=== PATIENT | male | born 1955 | race Caucasian/White ===

== ENCOUNTER → 2023-12-12 11:40 | Outpatient (REF) | payer BC, SELFPAY | LOC: HWRAD 11:40 | PROVIDERS: ATTENDING PHYSICIAN Physician Assistant Medical | DX: J20.9 Acute bronchitis, unspecified (principal); R05.1 Acute cough | CPT/HCPCS: 71046 ==

== ENCOUNTER → 2024-02-26 11:35 | Outpatient (REF) | payer BC, SELFPAY ==
[2024-02-26 16:07] LABS: % Basophils 0.4 % (0-2); % Eosinophils 0.8 % (0-6); % Immature Granulocytes 0.5 % (0-0.5); % Monocytes 7.1 % (1.7-9.3); % Neutrophils 78.2 % (42.2-75.2); Absolute Eosinophils 0.1 10^3/uL (0-0.7); Absolute Monocytes 0.5 10^3/uL (0.1-0.6); Absolute Neutrophils 5.8 10^3/uL (1.4-6.5); Hematocrit 46.7 % (39.0-52.0); Hemoglobin 15.8 g/dL (13.0-18.0); Mean Corp Hgb Conc. 33.8 g/dL (33.0-37.0); Mean Corpuscular Hgb 29.4 pg (27.0-31.0); Mean Platelet Volume 11.2 fL (7.4-10.4); Nucleated Red Blood Cells % 0 % (-); Platelet Count 176 10^3/uL (130-400); Red Blood Cell Count 5.37 10^6/uL (4.70-6.10); Red Cell Dist. Width 15.7 % (11.5-14.5); White Blood Cell Count 7.5 10^3/uL (4.8-10.8)
[2024-02-26 16:34] LABS: ALT (SGPT) 40 U/L (0-50); AST (SGOT) 37 U/L (17-59); Alkaline Phosphatase 82 U/L (38-126); Blood Urea Nitrogen 25 mg/dl (9-20); Calcium 9.3 mg/dl (8.4-10.2); Carbon Dioxide 25 mmol/L (22-30); Chloride 103 mmol/L (98-107); Glucose 96 mg/dl (70-99); HDL Cholesterol 43 mg/dl; LDL Cholesterol, Calculated 89 mg/dl; Sodium 139 mmol/L (135-145); Total Cholesterol 147 mg/dl (50-199); Total Protein 5.9 g/dl (6.3-8.2); Triglyceride 76 mg/dl (10-149); Very Low Density Lipoprotein 15 mg/dl (0-30); eGFR > 60.00
[2024-02-26 16:35] LABS: Uric Acid 6.2 mg/dl (3.5-8.5)
[2024-02-27 09:38] LABS: Glycohemoglobin (HgbA1c) 5.8 % (4.0-5.6)
== END ==
LOC: HWLAB 11:35
PROVIDERS: ATTENDING PHYSICIAN Internal Medicine Rheumatology; FAMILY PHYSICIAN Physician Assistant Medical; REFERRING PHYSICIAN Nurse Practitioner Adult Health
DX: M1A.09X0 Idiopathic chronic gout, multiple sites, without tophus (tophi) (principal); E78.5 Hyperlipidemia, unspecified; E88.810 Metabolic syndrome; R73.03 Prediabetes; R73.01 Impaired fasting glucose
CPT/HCPCS: 36415; 80053; 80061; 82172; 83036; 84550; 85025

== ENCOUNTER 2024-05-26 13:53 | Inpatient (IN) | payer BC, MEDICARE, SELFPAY ==
[2024-05-25 17:40] VITALS: BP 189/123
[2024-05-25 17:52] VITALS: BMI 33.2
[2024-05-25 18:05] VITALS: BP 161/104
[2024-05-25 18:13] LABS: % Basophils 0.5 % (0-2); % Eosinophils 1.2 % (0-6); % Immature Granulocytes 0.3 % (0-0.5); % Lymphocytes 13.5 % (20.5-51.1); % Monocytes 7.2 % (1.7-9.3); % Neutrophils 77.3 % (42.2-75.2); Absolute Eosinophils 0.1 10^3/uL (0-0.7); Absolute Monocytes 0.5 10^3/uL (0.1-0.6); Absolute Neutrophils 5.8 10^3/uL (1.4-6.5); Hematocrit 49.7 % (39.0-52.0); Hemoglobin 16.7 g/dL (13.0-18.0); Mean Corp Hgb Conc. 33.6 g/dL (33.0-37.0); Mean Corpuscular Hgb 28.7 pg (27.0-31.0); Mean Corpuscular Volume 85.4 fL (80.0-94.0); Mean Platelet Volume 10.8 fL (7.4-10.4); Nucleated Red Blood Cells % 0 % (-); Platelet Count 159 10^3/uL (130-400); Red Blood Cell Count 5.82 10^6/uL (4.70-6.10); White Blood Cell Count 7.5 10^3/uL (4.8-10.8)
[2024-05-25 18:31] LABS: ALT (SGPT) 32 U/L (0-50); AST (SGOT) 35 U/L (17-59); Albumin 4.6 g/dl (3.5-5.0); Alkaline Phosphatase 99 U/L (38-126); Blood Urea Nitrogen 18 mg/dl (9-20); Calcium 9.5 mg/dl (8.4-10.2); Carbon Dioxide 28 mmol/L (22-30); Chloride 103 mmol/L (98-107); Estimated Creatinine Clearance 88 ml/min; Glucose 114 mg/dl (70-99); Potassium 3.8 mmol/L (3.5-5.1); Sodium 139 mmol/L (135-145); Total Bilirubin 1.6 mg/dl (0.2-1.3); Total Protein 6.6 g/dl (6.3-8.2); eGFR > 60.00
[2024-05-25 19:00] VITALS: BP 164/106
--- NOTE | 2024-05-25 19:34 | ED.CVA ---
History of Present Illness
General
Chief Complaint: CVA/TIA Symptoms
Source: patient
Exam Limitations: none
Time Seen by Provider: 05/25/24 19:07
Nursing documentation reviewed up to this point in time: agreed with
Onset of Stroke Symptoms
Onset of symptoms known: Yes
Date of onset of symptoms: 05/25/24
Time of onset of symptoms: 03:00
History of Present Illness
History of Present Illness:
Patient with history of IA 3 years ago and hypertension, presents to ED secondary to sudden onset of dizziness when walking to bathroom this morning at 3 AM, associated with difficulty swallowing. Symptoms have persisted since then, especially when
standing up. Patient reports minimal symptoms when laying down without movement. Patient had virtual visit with his primary care physician, who also noted right eyelid drooping along with slurred speech. Patient also reports mild diffuse
headache. Denies blurred vision. Denies loss of sensation or weakness. Patient's difficulty with swallowing have improved gradually over time. Denies nausea, vomiting, or diarrhea. No recent illness. Denies previous history of similar
symptoms. Patient currently takes Plavix only.
Past History
Past History
ED Past Medical History: HTN, Hypercholesterolemia and Other (Gout); Negative NIDDM
ED Past Surgical History: Cholecystectomy
Social History
Tobacco: Non-smoker
Alcohol: Occasional
Drug: None
Personal:
Living: with family
Employment: Employed
Review of Systems
Review of Systems
Allergies reviewed?: Yes
All Other Systems: ROS reviewed and negative except as documented in HPI and ROS
Constitutional: Reports no symptoms
Respiratory: Reports no symptoms
Cardiac: Reports no symptoms
ABD/GI: Reports no symptoms
Musculoskeletal: Reports no symptoms
Skin: Reports no symptoms
Neurological: Reports other (dizziness, slurred speech, difficulty swallowing)
Phy Exam
Physical Exam
Physical Exam:
Physical Exam
General: no apparent distress, not acutely ill. afebrile
Head: nc/at. eomi
Neck: supple. no meningeal signs.
Heart: irregularly irregular, no murmur. equal radial pulses.
Lungs: no acute respiratory distress. clear bilaterally
Abdomen: normal bowel sounds. not tender.
Neuro: alert and oriented x 3. no focal neurological deficits. normal speech. right eyelid drooping noted.
Skin: no rash
Psychiatric: well kept. interactive and cooperative
Extremities: no edema. no calf tenderness.
Course
Orders/Labs/Results
Orders:
Orders
05/25/24 18:06
CMP [Comprehensive Metabolic Panel] Urgent
Complete Blood Count/With Diff Urgent
Magnesium Urgent
Comment: ADD ON
TSH Reflex To Free T4 Urgent
Comment: ADD ON
05/25/24 18:22
EKG [Electrocardiogram (*1)] Urgent
Reason for Study: Vertigo / Dizzy
05/25/24 18:23
EKG- Treatment ONCE
05/25/24 19:33
Add On- LAB Urgent
Tests Added?: magnesium, TSH to reflex free T4
CT Head W/o Iv Contrast Urgent
Comment:
Reason For Exam: dizziness with slurred speech
05/25/24 22:07
Admit/Transfer Patient As Directed
Co-Sign Provider:
Level of Care: Observation services
Assign to:: Telemetry
Physician / Group: kehinde
Diagnosis: cva
Reason for Telemetry: Arrhythmia
Date to Stop Telemetry: 05/28/24
Time to Stop Telemetry: 11:00
PRN Pain Medication Management As Directed
May give lesser potent ordered pain med per pt: Yes
preference::
Protocol:: Medication orders for pain may be administered in a
manner that supports deferring to patient preference
when the pt is:
- Requesting an ordered lesser potent pain medication.
Least to most potent pain medications are defined
as: acetaminophen < NSAID < tramadol < opioids
(morphine, oxycodone, hydromorphone).
- Requesting a lesser dose of the same medication IF
ORDERED.
- Requesting a less intrusive route of administration
if both routes are prescribed by the provider (PO <
IV).
05/25/24 22:08
Code Status As Directed
Resuscitation Status: Full Code
05/25/24 23:30
Nitroglycerin Sublingual [Nitrostat (Sublingual)] 0.4 mg SL [id number] PRN
05/25/24 23:30
NEUROLOGY CONSULT Routine
Consulting Provider: Marian Vance
Was physician already notified: Yes
Glycohemoglobin (HgbA1c) Routine
MA [place] Routine
Comment:
Reason For Exam: stroke/TIA
Recent pill cam endoscopy?: No
MA Neck With Contrast Routine
Comment:
Reason For Exam: stroke/TIA
Recent pill cam endoscopy?: No
MR Brain Without Contrast Routine
Comment:
Reason For Exam: stroke/TIA
Recent pill cam endoscopy?: Yes
Activity As Directed
Activity Level: As Tolerated
NIH Stroke Scale As Directed
Directions: Per protocol
Comment: every shift and with any change in condition or mental status
Neurological Checks As Directed
Frequency: q4h
Additional Instructions:: q4h x 24h upon admission to the floor, then qshift & with any change in condition
and mental status
Orthostatic Vital Signs As Directed
Orthostatic VS Frequency: Now
Patient Education As Directed
Type: Stroke education packet
Comment: provide to patient and family
Pneumatic Compression Sleeves As Directed
Type: Knee high
Swallow Screening CVA/TIA ONLY As Directed
Comment: NPO until swallowing screening completed
If patient FAILS swallow screening:: NPO, Speech Therapy consult, Aspiration Precautions
If patient PASSES swallow screening, diet:: Regular
Vital Signs As Directed
Frequency: Per unit guidelines
Speech Therapy Eval & Treat Routine
DX Deep Vein Thrombosis Video Routine
05/26/24 06:00
Basic Metabolic Panel IN AM
Cardiovascular Evaluation IN AM
Complete Blood Count/No Diff IN AM
05/26/24 08:00
Aspirin Chewable [Low Strength Aspirin] 81 mg PO DAILY
Carvedilol [Coreg] 6.25 mg PO BID
Clopidogrel Bisulfate [Plavix] 75 mg PO DAILY
05/26/24 18:00
Allopurinol [Zyloprim] 300 mg PO QPM
Amlodipine [Norvasc] 10 mg PO QPM
Celecoxib [Celebrex] 200 mg PO QPM
Finasteride [Proscar] 5 mg PO QPM
Losartan [Cozaar] 100 mg PO QPM
05/28/24 11:00
DC Protocol for Telemetry ONCE
Abnormal Lab Results
05/25/24
18:06
RDW 15.0 H %
(11.5-14.5)
MPV 10.8 H fL
(7.4-10.4)
Absolute Lymphs (auto) 1.0 L 10^3/uL
(1.2-3.4)
Neutrophils % 77.3 H %
(42.2-75.2)
Lymphocytes % 13.5 L %
(20.5-51.1)
Glucose 114 H mg/dl
(70-99)
Total Bilirubin 1.6 H mg/dl
(0.2-1.3)
05/25/24 18:06
05/25/24 18:06
Vital Signs
Initial and Last Documented VS:
Initial Vital Signs
Temp Pulse Resp BP Pulse Ox
98.1 F 84 18 189/123 99
05/25/24 17:40 05/25/24 17:40 05/25/24 17:40 05/25/24 17:40 05/25/24 17:40
Last Documented Vital Signs
Temp Pulse Resp BP Pulse Ox
97.9 F 82 18 159/115 99
05/25/24 23:30 05/25/24 23:30 05/25/24 23:30 05/25/24 23:30 05/25/24 23:30
MDM/Problems Addressed
MDM/Problems Addressed:
CT head: No acute findings. However, patient found to be in new onset atrial fibrillation, which raises concern for potential TIA versus CVA.
Discussed with on-call neurology, Dr. Vance. Recommends admitting patient for further workup, including starting patient on aspirin along with continuation of Plavix.
*EKG
Interpreted by ED Provider?: Yes
EKG Intrepretation Date: 05/25/24
Heart Rate: 80
Rate: normal
Rhythm: a-fib
[place]: normal axis
Interval: normal interval
*Critical Care Note
Total Time (30-74mins, 75-104mins- exclusive of procedures): Not Applicable
ED Attending Note
-
Portions of this chart may have been created with voice recognition software.� Occasional wrong word or��sound alike� substitutions may have occurred due to the inherent limitations of voice recognition software.
Discharge Plan
Departure
Patient Disposition: Admit
Date of Disposition: 05/25/24
Time of Disposition: 21:28
Admit to: Telemetry
Presentation/result/management discussed w/ accepting MD/DO: Hospitalist
Discharge Problem:
Dizziness, Atrial fibrillation
Interventions
Interventions:
*Risk Screen - Suicide Last Done: 05/25/24 17:52
*General Assessment Last Done: 05/25/24 17:52
*Neglect/Abuse Screening Last Done: 05/25/24 17:52
ED- Fall Risk Assessment Last Done: 05/25/24 18:19
*ED COVID-19 Vaccine History Last Done: 05/25/24 17:52
*Nursing Disposition Last Done: 05/25/24 23:20
ED- Pulmonary Assessment Last Done: 05/25/24 18:16
ED- Neurological Assessment Last Done: 05/25/24 19:20
ED- Cardiac Assessment Last Done: 05/25/24 18:16
Discharge Date and Time
Discharge Date/Time: 05/25/24 23:20
[2024-05-25 20:18] LABS: Magnesium 2.2 mg/dl (1.6-2.3)
[2024-05-25 20:56] LABS: TSH Reflex To Free T4 0.51 uIU/ml (0.47-4.68)
[2024-05-25 21:00] VITALS: BP 148/100
--- NOTE | 2024-05-25 22:16 | HPS.HSE ---
Addendum entered and electronically signed by Quentin Paz MD 05/25/24 22:23:
CAD s/p stent in 2020.
Original Note:
Family Physician
-
Family Physician: Shelli Britton
Chief Complaint
-
difficulty speaking
History of Present Illness
68-year-old male history of right eye blindness since childhood trauma, CAD, hypertension, hypercholesterolemia, gout, presenting to the emergency room for sudden onset of throat closing up, difficulty speaking and swallowing and dizziness while
walking to the bathroom this morning at 3 AM as well as headache. Dizziness occurs particularly when standing up and has improved since then and described as lightheadedness. He had virtual visit with primary care physician who noted right eyelid
drooping and slurred speech. Patient denies any blurry vision. He denies loss of sensation or numbness or tingling or weakness. His speaking has improved. He denies nausea vomiting or diarrhea. He denies any chest pain or palpitations. He has
chronic shortness of breath but denies any cough which is at baseline. He denies any tinnitus, hearing loss or discharge from the ear.
He has a history of elevated blood pressure which has been volatile in the past but he has not been checking it recently. He is compliant with blood pressure medications.
He denies smoking alcohol or any drugs.
His father had stroke.
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
Medical History
Past Medical History
Past Medical History: Reports Other (right eye blindness since childhood trauma, CAD, hypertension, hypercholesterolemia, gout, )
Past Surgical History: Reports Other (Cholecystectomy)
Social History
Tobacco: Non-smoker
Alcohol: None
Drug: None
Family History
Family History: Not pertinent
Allergies / Home Medications
Allergies reflects when Allergies were last updated in [facility].
Home Medications with original date entered in [facility]
Allergy/Medication List:
Allergies
Allergy/AdvReac Type Severity Reaction Status Date / Time
codeine [Codeine] Allergy vomiting Verified 05/25/24 17:44
lisinopril Allergy throat Verified 05/25/24 17:44
problems
Home Medications
allopurinol 300 mg tablet 300 mg PO QPM Gout 05/31/21
amlodipine 10 mg tablet 10 mg PO QPM Blood pressure 05/31/21
telmisartan 80 mg tablet 80 mg PO QPM Blood pressure 05/31/21
nitroglycerin 0.4 mg sublingual tablet 0.4 mg sublingual [id number] PRN chest pain #25 tabs 06/01/21
aspirin 81 mg chewable tablet 81 mg PO QPM 05/25/24
carvedilol phosphate 20 mg capsule,[id number] multiphase 20 mg PO QPM 05/25/24
celecoxib 200 mg capsule 200 mg PO QPM 05/25/24
clopidogrel 75 mg tablet (Plavix) 75 mg PO DAILY 05/25/24
finasteride 5 mg tablet 5 mg PO QPM 05/25/24
Review of Systems
-
History Source: Patient
A 12 point ROS was completed and negative except as noted: Yes
Constitutional: Reports No Symptoms
EENT: Reports No Symptoms
Respiratory: Reports No Symptoms
Cardiac: Reports See HPI
Abdomen/GI: Reports No Symptoms
: Reports No Symptoms
Musculoskeletal: Reports No Symptoms
Skin: Reports No Symptoms
Neurological: Reports See HPI
Endocrine: Reports No Symptoms
Hematologic/Lymphatic: Reports No Symptoms
Psych: Reports No Symptoms
Physical Exam
Vital Signs
Vital Signs
Temp Pulse Resp BP Pulse Ox
98.1 F 83 18 164/106 98
05/25/24 17:40 05/25/24 19:00 05/25/24 19:00 05/25/24 19:00 05/25/24 19:00
Physical Exam
General: Well Developed, Well Nourished and No Apparent Distress
HEENT: NormoCephalic, Moist mucous membranes and Atraumatic
Respiratory: Clear
Cardiac: S1/S2 and Regular Rhythm; No Murmur or Rub
GI: Soft, Non Tender, Non Distended and Normal Bowel Sounds; No Organomegaly
Rectal: Deferred by Provider
Musculoskeletal: No Clubbing, No Cyanosis and No Edema
Skin: No Rash
Neuro: Nonfocal/grossly intact
Laboratory Results
-
05/25/24 18:06
05/25/24 18:06
Laboratory Results
Total Bilirubin 1.6 mg/dl (0.2-1.3) H 05/25/24 18:06
AST 35 U/L (17-59) 05/25/24 18:06
ALT 32 U/L (0-50) 05/25/24 18:06
Alkaline Phosphatase 99 U/L (38-126) 05/25/24 18:06
Data Reviewed
-
Lab Data: Labs Reviewed by me
Old Records: Reviewed
Impression/Plan
-
IMPRESSION:
PLAN:
# Dysarthria/dysphagia/dizziness/right eye ptosis secondary to TIA/CVA vs Melgar's palsy versus myasthenia gravis
-Not candidate for TNK since greater than 15 hours since onset of symptoms
-CT head negative
-Check orthostatic vital signs
-Check MRI/MRA brain and neck
-Continue aspirin and Plavix for now although anticoagulation needs to be started after MRI result available
-Check speech and swallow
-Neurology consulted
# New onset atrial fibrillation
-Rate controlled
-Needs to start anticoagulation when approved by neurology
Coronary artery disease
-Continue aspirin and Plavix for now
Essential hypertension
-Continue amlodipine, Coreg, telmisartan
Gout
-Continue allopurinol
-Continue celecoxib
BPH
-Continue finasteride
Full code
DVT prophylaxis�SCDs
Regular diet
[2024-05-25 23:30] VITALS: BP 147/103; BP 159/115; BP 163/106; PULSE 82; PULSE 83; PULSE 88; BMI 32.4
[2024-05-26] VITALS (9 sets, daily range): BP systolic 128–153; BP diastolic 87–109; PULSE 64–86
--- NOTE | 2024-05-26 00:35 | PTCARENOTE ---
Patient arrived from ED, alert and cooperative. Able to walk into bathroom with steady gait. patient stated he didn't take his daily amlodipine, telmisartan, Plavix, allopurinol, finasteride or Celebrex this evening and hasn't been able to eat food
all day. Patient passed swallow eval with water. Provide notified.
[2024-05-26] MEDS: CELEBREX 200 MG PO (00:46)
[2024-05-26] MEDS: NORVASC 10 MG PO ×2 (00:46→18:37)
[2024-05-26] MEDS: PLAVIX 75 MG PO (08:40)
[2024-05-26] MEDS: LOW STRENGTH ASPIRIN 81 MG PO (08:40)
[2024-05-26] MEDS: COREG 6.25 MG PO ×2 (08:40→20:26)
--- NOTE | 2024-05-26 08:40 | PTOTSP ---
Speech Language Pathology
Pt seen for speech/language evaluations. No dysarthria noted with adequate diadochokinetic (DDK) rates. Pt was 100% intelligible in both known and unknown contexts. Language evaluated via the Quick Aphasia Battery (form 1). Pt with overall score
of 9.93, indicative of language WNL.
Pt also seen for clinical bedside swallow evaluation. Pt reported he was unable to swallow saliva on admission to hospital and was spitting saliva out into a cup. P.O. trials of regular solids and thin liquids provided. Also seen with med pass
with RN. Pt took 1 pill at a time with water to be cautious. Adequate mastication, bolus formation, and A-P transit noted with no oral residue. No overt signs of aspiration. He denied noting any of the difficulty he noted on admission.
Recommend:
(1) Regular solids/thin liquids
(2) General aspiration precautions
(3) Meds as tolerated
(4) PECAN GROWER to continue to follow pending results of workup
[2024-05-26] MEDS: FLUSH (NSS) 1 FLUSH IV (08:41)
[2024-05-26 08:56] LABS: Hematocrit 47.5 % (39.0-52.0); Hemoglobin 16.3 g/dL (13.0-18.0); Mean Corp Hgb Conc. 34.3 g/dL (33.0-37.0); Mean Corpuscular Volume 84.4 fL (80.0-94.0); Mean Platelet Volume 10.4 fL (7.4-10.4); Platelet Count 156 10^3/uL (130-400); Red Blood Cell Count 5.63 10^6/uL (4.70-6.10); Red Cell Dist. Width 14.9 % (11.5-14.5); White Blood Cell Count 7.9 10^3/uL (4.8-10.8)
[2024-05-26 09:23] LABS: COVID-19 Antigen Negative (Negative)
--- NOTE | 2024-05-26 09:45 | CON.NEURO4 ---
Addendum entered and electronically signed by Rishabh Hernandez MD 05/26/24 14:00:
Suggested right pontine subacute ischemic stroke.
Would provide anticoagulation to replace antiplatelet use.
Addendum entered and electronically signed by Rishabh Hernandez MD 05/26/24 12:29:
Studies reviewed.
I have personally examined the patient. I reviewed and agree with the EARLY CHILDHOOD EDUCATOR AIDE's Note.
My addenda:
Awake, alert, interactive. No acute distress.
Speech intact.
Follows 2-step requests w/o difficulty. No tremor.
Extra-ocular movements grossly intact.
Facial movements full and symmetric. Hearing intact to normal conversational volume.
Normal UE movements bilaterally.
Neck: full ROM.
Chest: no dyspnea
Heart: no JVD
Ext: (-) Clubbing, (-) Cyanosis, (-) Edema
IMPRESSIONS/RECOMMENDATIONS:
Abrupt onset of dizziness and dysplasia with acute onset atrial fibrillation
Differential diagnosis would include acute ischemic stroke, potentially involving brainstem or cortex. Also would include orthostasis although this is less likely
Would immediately anticoagulate if appropriate from cardiology standpoint. The patient's minimal symptoms currently and likely at worst lacunar sized infarcts intracranially mean low likelihood of conversion to hemorrhagic from ischemic stroke
with immediate anticoagulation instead of antiplatelet agent use
Would discontinue aspirin and clopidogrel if anticoagulation is to be initiated from neurological perspective. If still appropriate from cardiology perspective, would maintain either or both
Would atorvastatin 80 mg daily unless intolerant, at which time rosuvastatin 20 mg may be utilized instead
Goal of normotension as the timeframe is greater than 24 hours since onset
Goal of normoglycemia
We will follow MRI of brain results
Provide lorazepam if needed for claustrophobia to obtain MRI of brain
Check orthostatic blood pressures
D/W patient
All questions answered.
Will continue to follow pending result.
Original Note:
Consultation - Neurology 4
-
CONSULTING PHYSICIAN: Dr. Rishabh Hernandez
REFERRING PHYSICIAN: Quentin Paz MD
DICTATED BY: LINH Cannon
DATE/TIME OF REQUEST: 05/25/2024
DATE/TIME OF CONSULTATION: 05/26/2024
Reason for Consultation: stroke symptoms
History of Present Illness:
68-year-old left handed male with a history of right eye blindness since childhood trauma, CAD, hypertension, chronic hearing less left worse than right, hypercholesterolemia and gout who presented to the emergency room for sudden onset of throat
closing up, difficulty speaking and swallowing and dizziness while walking to the bathroom this morning at 3 AM. He also reported mild headache. He stated dizziness seemed positional. He did a home COVID test which was negative but d/t symptoms he
scheduled a virtual visit with primary care, Shelli Britton, who noted right eyelid drooping and slurred speech. His spouse also noted some slurred speech. He denied any new vision changes. He denies loss of sensation or numbness/tingling or
weakness. He denies any chest pain or palpitations. He denies any tinnitus, hearing loss or discharge from the ear. He was found to be in atrial fibrillation on EKG. 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 He admits the he has almost daily mild
headaches. these are generalized and normally do not require any mediation. he did once see a neurologist years ago at [facility] for some right posterior head pain and was prescribed medication. He does not recall what medication he had
taken and this has resolved. Today he reports improvement of all symptoms. He only has mid residual dizziness today.
Past Medical History: Reports Other (right eye blindness since childhood trauma, CAD, hypertension, hypercholesterolemia, gout, )
Past Surgical History: Reports Other (Cholecystectomy)
Family History: father with history of stroke
Social History: Lives with , non smoker, denies alcohol use
Allergies: see below
Home Medications: see below
Review of Symptoms:
Patient denies any fever, headache, chest pain, shortness of breath, GI or symptoms.
�
Vital Signs: see below
Physical Exam:
The patient is afebrile, heart sounds S1 and S2 are irregular and no dyspnea
NIH Stroke Scale-NIH score 0
Neurologic Examination:
The patient is awake, alert and oriented x 3. She is able to follow commands and answer questions appropriately. There is no aphasia or dysarthria. On cranial nerve assessment, left pupil 3 mm reactive. Visual vickers are full. Extraocular movements
are intact. Facial sensations are intact, right mild right ptosis. Hearing reduced b/l to to normal conversation volume left worse than right. Tongue palate and uvula are midline. Sternocleidomastoid strengths are full bilaterally. Motor strengths
are 5/5 bilateral upper and lower extremities on medical research [place] scale. There is no drift or involuntary movement noted. Sensations of pain, touch, temperature and vibration are intact and bilaterally symmetrical. There was no extinction
noted on double simultaneous stimulation. Coordination is intact by finger to nose bilaterally. Romberg negative
Lab Results: see below
Neuro Imaging: CT head-No evidence of acute intracranial abnormality.
Impression:
RUTHIE SAENZ is a 68 year old M who has presented to the hospital with trouble swallowing, dizziness and slurred speech. Found to have new onset atrial fibrillation
Differentials for the patient's presentation include:
1. acute stroke in setting of new onset atrial fibrillation
2. viral illness
Patient has the following risk factors for their symptoms: CAD, HTN, age
IV Tenecteplase/IAT candidacy-NIH 0
Recommendations:
MRI brain
MRA neck with and without contrast
Reviewed new onset atrial fibrillation-cardiology consulted
Echo pending
O.K to start anticoagulation from neurologic perspective
Goal normotension
LDL pending, start atorvastatin 40 mg goal LDL is less than 70
Goal normoglycemia-HgbA1c pending
Evaluated by speech-cleared for regular texture diet
no need for OT or speech and no deficits noted
DVT prophylaxis
Discussed patient care with: Patient, neurologist
Medication and Allergies
Home Medications
Home Medications
�Medication �Instructions �Recorded
allopurinol 300 mg tablet 300 mg PO QPM Gout 05/31/21
amlodipine 10 mg tablet 10 mg PO QPM Blood pressure 05/31/21
telmisartan 80 mg tablet 80 mg PO QPM Blood pressure 05/31/21
nitroglycerin 0.4 mg sublingual 0.4 mg sublingual [id number] PRN 06/01/21
tablet chest pain #25 tabs
aspirin 81 mg chewable tablet 81 mg PO QPM 05/25/24
carvedilol phosphate 20 mg 20 mg PO QPM 05/25/24
capsule,[id number] multiphase
celecoxib 200 mg capsule 200 mg PO QPM 05/25/24
clopidogrel 75 mg tablet (Plavix) 75 mg PO DAILY 05/25/24
finasteride 5 mg tablet 5 mg PO QPM 05/25/24
Allergies
Allergies
Allergy/AdvReac Type Severity Reaction Status Date / Time
codeine [Codeine] Allergy vomiting Verified 05/25/24 17:44
lisinopril Allergy throat Verified 05/25/24 17:44
problems
Vital Signs and Labs
-
Vital Signs and Labs:
Vital Signs
Temp Pulse Resp BP Pulse Ox
97.9 F 74 18 153/109 98
05/26/24 07:59 05/26/24 09:40 05/26/24 07:59 05/26/24 09:40 05/26/24 07:59
Lab Results
05/26/24 08:37
Sodium 139 mmol/L (135-145) 05/25/24 18:06
Potassium 3.8 mmol/L (3.5-5.1) 05/25/24 18:06
BUN 18 mg/dl (9-20) 05/25/24 18:06
Glucose 114 mg/dl (70-99) H 05/25/24 18:06
Calcium 9.5 mg/dl (8.4-10.2) 05/25/24 18:06
--- NOTE | 2024-05-26 09:46 | CON.CAR ---
Addendum entered and electronically signed by Wilver Liz MD 05/26/24 11:29:
I saw and examined the patient.
The BUSINESS SERVICES REPRESENTATIVE's note was reviewed and I agree with the note.
68-year-old male with a history of coronary artery disease,, coronary stenting 2020, hypertension hypercholesterolemia who presented with some issues with swallowing and also reported slurred speech. Head CT unremarkable. Patient noted to have new
onset atrial fibrillation of unknown duration. In discussion with patient he did use a family member's manager monitoring at home which reported A-fib about 2 weeks ago. He was not having any symptoms at the time. He is normally maintained on Coreg
and has baseline bradycardia he says his heart rates are normally in the 50s and 60s. Last ECG in [facility] with sinus bradycardia and heart rate of 51. Patient was not maintained on anticoagulation prior to admission.
#A-fib.
-Duration unknown. Seems as if it was at least noticed 2 weeks ago but may have been occurring longer.
-Heart rates at rest in the 70s and 80s sometimes more accelerated in the 120s with activity. With reported baseline bradycardia with opted not to increase his beta-juan at this time. Would have some concern of him being too bradycardic if he
converts back to sinus
-Echo
- CHADSVASC 3-5 (score is 5 if patient has had TIA or CVA)
-Anticoagulation when safe from a neurostandpoint. Head CT without CVA. Awaiting MRI..
.
# Hypertension. Appears patient has elevated blood pressure despite current medical therapy. If patient has evidence of acute CVA then will allow for additional hypertension but if no evidence of CVA would add additional medical therapy. Would
hold off on increasing carvedilol due to the reasons noted above. Could consider use of hydralazine.
Original Note:
Consultation
Consultation Request
Date/Time Consultation Requested: 05/26/24840
Date/Time Consultation Performed: 05/26/24914
Requesting Provider: Dr. Linares
Performing Provider: Kamla MELTON for Dr. Liz
Reason for Consultation: AFIB
Medical History
-
Chief Complaint: swallowing issues, elevated BP
History of Present Illness:
68 y/o male with CAD with hx stenting (2020), hypertension, preDM, ascending aortic ectasia, right eye blindness, and dyslipidemia who is here for evaluation after he woke up around 3 AM Friday AM with dizziness and feeling that he couldn't
swallow/felt throat closing sensation. He had an appointment with his PCP and was told he had slurred speech and right eye droop. He checked his BP and it was quite elevated 165/125, so he came to the ER and has been admitted. AFIB is noted, which
is a new diagnosis for him. However, a family member put an apple watch on him about 2 weeks ago and it said afib, but he wasn't sure if it was right so didn't pursue any further. His flake drier is Dr. Stout at [place]. Neuro is consulted due to
concern for TIA/stroke.
Past Medical History
Past Medical History: CAD, HTN, Hypercholesterolemia and Other (as above)
Social History
Tobacco: Non-Smoker
Alcohol: None
Family History
Family History: CAD (dad [place] age 73)
Allergies / Home Medications
Allergy/AdvReac Type Severity Reaction Status Date / Time
codeine [Codeine] Allergy vomiting Verified 05/25/24 17:44
lisinopril Allergy throat Verified 05/25/24 17:44
problems
�Medication �Instructions �Recorded �Confirmed �Type
allopurinol 300 mg tablet 300 mg PO QPM Gout 05/31/21 05/25/24 History
amlodipine 10 mg tablet 10 mg PO QPM Blood pressure 05/31/21 05/25/24 History
telmisartan 80 mg tablet 80 mg PO QPM Blood pressure 05/31/21 05/25/24 History
nitroglycerin 0.4 mg sublingual 0.4 mg sublingual [id number] PRN 06/01/21 05/25/24 Rx
tablet chest pain #25 tabs
aspirin 81 mg chewable tablet 81 mg PO QPM 05/25/24 05/25/24 History
carvedilol phosphate 20 mg 20 mg PO QPM 05/25/24 05/25/24 History
capsule,[id number] multiphase
celecoxib 200 mg capsule 200 mg PO QPM 05/25/24 05/25/24 History
clopidogrel 75 mg tablet (Plavix) 75 mg PO DAILY 05/25/24 05/25/24 History
finasteride 5 mg tablet 5 mg PO QPM 05/25/24 05/25/24 History
Review of Systems
-
History Source: Patient
All other systems: Negative unless noted
EENT: Other (trouble swallowing)
Neurological: Other (slurred speech right eye droop)
Physical Exam
Vital Signs
Temp Pulse Resp BP Pulse Ox
97.9 F 74 18 153/109 98
05/26/24 07:59 05/26/24 09:40 05/26/24 07:59 05/26/24 09:40 05/26/24 07:59
Lab Results
05/26/24 08:37
Physical Exam
General: Well Developed, Well Nourished and No Apparent Distress
HEENT: Normocephalic and Anicteric
Respiratory: Clear and Non Labored Respirations
Cardiac: Irregular Rhythm
Skin: Warm
Neuro: AO x 3
Psych: Calm
Impression / Plan
-
Throat symptoms, slurred speech, right eye droop:
-improved
-neuro following and MRI pending
-Speech eval ordered per primary
AFIB: new diagnosis
-fairly rate-controlled. Continue current BB. Has been bradycardic in past (in SR), so won't increase Coreg for now. Follow telemetry.
-[id number] score is at least 3 (HTN, CAD, age), but would be 5 if TIA/CVA. Recommend OAC with Eliquis 5 mg PO BID when safe per neuro. MRI pending.
-as OP can discuss rhythm plan such as CV with his OP flake drier, but would not do so now since question of neuro event
-check echo
-TSH normal
HTN:
-elevated
-continue CCB and ARB and BB- may need to increase
-awaiting MRI to see if neuro event
CAD with hx stenting:
-stable without CP
-currently on DAPT with ASA/plavix- to be adjusted when OAC started as above
-previous inpatient note reviewed and does not tolerate statin per chart
Data Reviewed
-
EKG: Tracing Personally Visualized and interpreted (AFIB [address] Scan: Report Reviewed by me (No evidence of acute intracranial abnormality.)
Medical Tests (Nuc Med, Echo etc): Report Reviewed by me (Echo 12/03/22: EF 50-55%. Mild tricuspid regurgitation. Estimated pulmonary artery pressure of 35-40 mmHg. Sinus of Valsalva is 4.8 cm, S-T junction is 4.2 cm, and proximal ascending aorta is
4.4 cm.)
Labs: Labs Reviewed by me
[2024-05-26 10:34] LABS: Blood Urea Nitrogen 17 mg/dl (9-20); Calcium 9.4 mg/dl (8.4-10.2); Carbon Dioxide 28 mmol/L (22-30); Chloride 102 mmol/L (98-107); Estimated Creatinine Clearance 79 ml/min; Glucose 94 mg/dl (70-99); HDL Cholesterol 38 mg/dl; LDL Cholesterol, Calculated 122 mg/dl; Potassium 3.4 mmol/L (3.5-5.1); Sodium 138 mmol/L (135-145); Total Cholesterol 179 mg/dl (50-199); Triglyceride 98 mg/dl (10-149); Very Low Density Lipoprotein 19 mg/dl (0-30); eGFR > 60.00
--- NOTE | 2024-05-26 11:03 | W.PN.HOSP.TC ---
Addendum entered and electronically signed by Familia Linares MD 05/26/24 16:54:
update spouse over the phone in details.
Addendum entered and electronically signed by Familia Linares MD 05/26/24 14:14:
Discussed patient MRI of the brain and MRA of the neck results with neurology Dr. Hernandez and Dr. Liz. MRA There is diminutive right vertebral artery with occlusion of the V4 segment. There is additional likely mild stenosis within the
mid/superior basilar artery. Per radiology- It looks like it has some petechial hemorrhage but I didn�t see any gross blood. Per neurology, its minimal. Plan will be to control blood pressure . Avoid IV heparin. All in agreement for patient to
be started on anticoagulation. Plavix held till further input from cardiology as with hx of CAD and on aspirin too. Eliquis to be started now. Continue with neurochecks/NIHSS. ECHO pending.
Original Note:
Today's Communication/Plan
-
MR brain pending
ECHO
PT/OT ordered
appreciate neuro/cards recs
Assessment / Plan
Assessment / Plan
# Dysarthria/dysphagia/dizziness/right eye ptosis secondary to TIA/CVA vs Melgar's palsy versus myasthenia gravis
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
-CT head negative
-Check orthostatic vital signs NEGATIVE
-Check MRI/MRA brain and neck
-Continue aspirin and Plavix for now
-Check speech and swallow-passed shallow eval.
-PT/OT per protocol
-Neurology consulted
# New onset atrial fibrillation
-Rate controlled with carvedilol. Continue with current dose. Monitor on telemetry. Heart rate is controlled.
-Per neurology okay to start anticoagulation. Will defer to cardiology if patient will need triple therapy with aspirin Plavix and DOAC or can stop antiplatelet agents.
-Check ECHO.
# Coronary artery disease
-Continue aspirin and Plavix for now
Essential hypertension
-Continue amlodipine, Coreg, telmisartan (non formulary) on losartan for now
Gout
-Continue allopurinol
-Continue celecoxib
BPH
-Continue finasteride
Hypokalemia
-replete/monitor
Full code
DVT prophylaxis�SCDs
Anticipated Discharge: Within 24 hours
Subjective/Interval History
-
Date of Service: May 26, 2024
States feeling compare to overnight
Denies diplopia all throat closing
Was able to tolerate breakfast earlier today
Objective Data
-
Labs:
Laboratory Results
05/26/24
08:37
WBC 7.9
Hgb 16.3
Hct 47.5
Plt Count 156
Sodium 138
Potassium 3.4 L
Chloride 102
Carbon Dioxide 28
BUN 17
Creatinine 1.0
Glucose 94
Calcium 9.4
Vital Signs:
Vital Signs
Temp Pulse Resp BP Pulse Ox
97.9 F 74 18 153/109 98
05/26/24 07:59 05/26/24 09:40 05/26/24 07:59 05/26/24 09:40 05/26/24 10:19
I&O
05/25/24 05/26/24 05/27/24
06:59 06:59 06:59
Intake Total 480 / 480
Balance 480 / 480
Physical Exam
-
General: Well Developed and No Apparent Distress
HEENT: Normocephalic, Atraumatic and Moist Mucous Membranes
Respiratory: Clear to Auscultation
Cardiac: Regular Rhythm and S1/S2; Negative Murmur, Rub or Gallop
GI: Soft, Nontender, Nondistended and Normal Bowel Sounds; Negative Organomegaly
Rectal: Deferred by Provider
Musculoskeletal: No Clubbing, No Cyanosis and No Edema
Skin: Negative Rash
Neuro: Awake and Nonfocal/Grossly Intact
Psych: Calm
Data Reviewed
-
Total Time Spent with Patient (in minutes): 56
[2024-05-26] MEDS: ATIVAN 1 MG PO (11:12)
[2024-05-26] MEDS: KCL 20 MEQ PO (11:12)
--- NOTE | 2024-05-26 15:22 | CM ---
Patient seen bedside, initial assessment completed. Patient resides in a two story home with his significant other, two steps to enter. Patient denies use of DME, VN, or SNF. Patient confirms PCP Shelli Britton, pharmacy [facility]. Patient confirms
prescription coverage. OBS form reviewed, refused to sign, placed in chart. Patient inquiring if he is discharging home, CM reports she is not aware of a discharge at this time. CM spoke with nurse, no discharge scheduled for patient today. CM will
continue to follow for all discharge planning needs.
Plan; home with significant other, watch for VN needs.
[2024-05-26] MEDS: ELIQUIS 5 MG PO ×2 (15:43→20:26)
--- NOTE | 2024-05-26 17:02 | PTCARENOTE ---
Pt AAO x3, RAMIREZ well, OOB ambulator yin room/to BR; marley well, no c/o weakness/dizziness. Pt has slight Rt eyelid ptosis. NIHSS 1. VSS. Telemetry:Afib to 130's with activity, no c/o palpitations. On room air- pulse ox 98%, no SOB noted. Abd
large, soft, marley PO well, no dysphagia noted. Voiding in BR without difficulty.
[2024-05-26] MEDS: COZAAR 100 MG PO (18:36)
[2024-05-26] MEDS: ZYLOPRIM 300 MG PO (18:37)
[2024-05-26] MEDS: LIPITOR 40 MG PO (18:37)
[2024-05-26] MEDS: PROSCAR 5 MG PO (18:37)
[2024-05-27 03:35] VITALS: BP 140/104
[2024-05-27 07:50] VITALS: BP 154/99
[2024-05-27] MEDS: LOW STRENGTH ASPIRIN 81 MG PO (09:00)
[2024-05-27] MEDS: COREG 6.25 MG PO (09:01)
[2024-05-27] MEDS: ELIQUIS 5 MG PO (09:01)
--- NOTE | 2024-05-27 10:32 | W.PN.CD ---
Today's Communication / Plan
-
- continue Coreg and Arb
- add Spironolactone
Impression / Plan
-
Throat symptoms, slurred speech, right eye droop:
-improved
- Small focus of hyperintensity signal right lateral medulla. Likely infarct with microhemorrhage
-Continue treatment of hypertension
-Anticoagulation for atrial fibrillation. Initiation as directed by neurology
AFIB: new diagnosis
-fairly rate-controlled. Continue current BB. Has been bradycardic in past (in SR), so won't increase Coreg for now. Previously with sinus bradycardia with heart rate 51. Follow telemetry. Turn for bradycardia if patient converts.
-[id number] score is at least 3 (HTN, CAD, age), but would be 5 if TIA/CVA. Recommend OAC with Eliquis 5 mg PO BID when safe per neuro. MRI pending.
-as OP can discuss rhythm plan such as CV with his OP sample weaver, but would not do so now since question of neuro event
Cardiomyopathy - mildly reduced left ventricular function with ejection fraction 40 to 45%. Decreased from prior echo. Exact etiology unclear. Already on beta-juan and ARB.
-Pretension
-Low-dose spironolactone
-Plan for Lexiscan study as outpatient.
HTN:
-elevated
-continue CCB and ARB and BB-
-Low-dose Spironolactone. Will need labs next week and then again in 3 weeks
CAD with hx stenting:
-stable without CP
-currently on DAPT with ASA/plavix- to be adjusted when OAC started as above
-previous inpatient note reviewed and does not tolerate statin per chart
Physical Exam
Vital Signs/Labs
Vital Signs
Temp Pulse Resp BP Pulse Ox
97.9 F 96 18 154/99 95
05/27/24 07:50 05/27/24 09:01 05/27/24 07:50 05/27/24 09:01 08/15/24 07:50
05/26/24 05/27/24 05/28/24
06:59 06:59 06:59
Actual Weight 96.729 kg
05/26/24 08:37
Magnesium 2.2 mg/dl (1.6-2.3) 05/25/24 18:06
Triglycerides 98 mg/dl (10-149) 05/26/24 08:37
LDL Cholesterol, Calc 122 mg/dl 05/26/24 08:37
VLDL Cholesterol, Calc 19 mg/dl (0-30) 05/26/24 08:37
HDL Cholesterol 38 mg/dl 05/26/24 08:37
Physical Exam
Constitutional: No acute distress
EENT: Anicteric
Cardiovascular: Rhythm/rate is irregular
Respiratory: Respiratory effort normal and Crackles Absent
GI: Soft, Non tender and Normal bowel sounds
Neuro/Psych: Alert, Oriented and AO x 3
Data Reviewed
-
Date of Service: May 27, 2024
Medical Decision Making: Reviewed Test Results
Echo: Report Reviewed by me
Medical Tests (PFT, Pathology etc): Report Reviewed by me
Labs: Labs Reviewed by me
[2024-05-27 10:38] VITALS: BP 147/104; PULSE 82; O2SAT 99
[2024-05-27 10:49] LABS: Blood Urea Nitrogen 20 mg/dl (9-20); Calcium 9.3 mg/dl (8.4-10.2); Carbon Dioxide 27 mmol/L (22-30); Chloride 103 mmol/L (98-107); Estimated Creatinine Clearance 71 ml/min; Glucose 100 mg/dl (70-99); Potassium 3.6 mmol/L (3.5-5.1); Sodium 139 mmol/L (135-145); eGFR > 60.00
[2024-05-27 10:52] VITALS: BP 147/104; PULSE 82; O2SAT 99
[2024-05-27] MEDS: ALDACTONE 12.5 MG PO (11:35)
[2024-05-27 11:40] VITALS: BP 141/91
--- NOTE | 2024-05-27 12:05 | W.PN.HOSP.TC ---
Today's Communication/Plan
-
Eliquis/asa
aldactone started-op labs
Assessment / Plan
Assessment / Plan
# Dysarthria/dysphagia/dizziness/right eye ptosis secondary to CVA 2/2 diminutive right vertebral artery with occlusion of the V4 segment
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
-CT head negative
-Check orthostatic vital signs NEGATIVE
-Continue aspirin and started on Eliquis.
-Check speech and swallow-passed shallow eval.
-PT/OT per protocol
-MRA There is diminutive right vertebral artery with occlusion of the V4 segment. There is additional likely mild stenosis within the mid/superior basilar artery. Per radiology- It looks like it has some petechial hemorrhage but I didn�t see any
gross blood. Per neurology, its minimal.
-Neurology consulted
# New onset atrial fibrillation
-Rate controlled with carvedilol. Continue with current dose. Monitor on telemetry. Heart rate is controlled.
-Per neurology okay to start anticoagulation. d/w with cardiology Dr. Liz with plan to continue aspirin and stop plavix as started on Eliquis
#HFrEF unknown chronicity
EF 40 to 45%. Mild mitral and aortic and tricuspid regurgitation.
# Coronary artery disease
-Continue aspirin and coreg. Not able to tolerate statin.
Essential hypertension
-Continue amlodipine, Coreg, telmisartan (non formulary) on losartan for now and Aldactone added
Gout
-Continue allopurinol
BPH
-Continue finasteride
Hypokalemia
-replete/monitor
Full code
DVT prophylaxis�SCDs/Eliquis
More than 30 minutes spent in discharge including
Final examination of the patient
Summarizing hospital stay
Instructions for continuing care to all relevant caregivers
Preparation of discharge records, prescriptions, and referral forms
Total time spent (in minutes): 53
Anticipated Discharge: Today
Subjective/Interval History
-
Date of Service: May 27, 2024
States ability to shallow has improved
walking around without much dizziness
Objective Data
-
Labs:
Laboratory Results
05/27/24
08:47
Sodium 139
Potassium 3.6
Chloride 103
Carbon Dioxide 27
BUN 20
Creatinine 1.1
Glucose 100 H
Calcium 9.3
Vital Signs:
Vital Signs
Temp Pulse Resp BP Pulse Ox
98 F 87 16 141/91 96
05/27/24 11:40 05/27/24 11:40 05/27/24 11:40 05/27/24 11:40 05/27/24 11:40
I&O
05/26/24 05/27/24 05/28/24
06:59 06:59 06:59
Intake Total 480 / 480 900 / 900
Balance 480 / 480 900 / 900
Data Reviewed
-
Total Time Spent with Patient (in minutes): 56
[2024-05-27 12:52] LABS: Troponin I < 0.012 ng/ml
--- NOTE | 2024-05-27 13:08 | CM ---
Patient seen bedside, discussed switched to inpatient status. CM discussed PT recommendations of outpatient therapy, patient declining at this time. Patient reports he is hopeful for discharge today, reports significant other is here to provide
transportation home. CM will continue to follow for all discharge planning needs.
Plan; home no needs, declining outpatient PT.
--- NOTE | 2024-05-27 14:20 | W.DCSUMMARY ---
Discharge Summary
Discharge Data
Date of Admission: 05/26/24
Date of Discharge: 05/27/24
-
Pending Results: No
Hospital Course
68-year-old male past medical history of CAD status post stents, BPH, gout, hypertension is presenting from home with complaint of dysarthria dysphagia and dizziness. Patient underwent CT of the head on admission was found to be negative. Patient
was out of window for TNK. Orthostatic vital sign was checked to be negative. Patient was eval by neurology and aspirin and Plavix was continued. Patient underwent MRI of the brain which showed Small focus of diffusion hyperintensity signal with
correlative T2/FLAIR hyperintense signal along the right lateral medulla. Additionally there is associated blooming artifact. Findings are likely an infarct with microhemorrhage. MRA NECK There is diminutive right vertebral artery with occlusion of
the V4 segment. There is additional likely mild stenosis within the mid/superior basilar artery. Per neurology patient with lacunar stroke and microhemorrhages minimal and not concerned. Patient was also found to be new onset of atrial
fibrillation and after discussion with neurology and cardiology plan will be to start patient on Eliquis. Patient with history of CAD status post stent and plan will be to continue aspirin and discontinue Plavix after discussion with Dr. Liz.
Patient also underwent echocardiogram with reduced ejection fraction of 40 to 45% which probably new onset. Cardiology check troponin found to be negative. Patient without any chest pain. Patient without any shortness of breath at rest or
exertion. Patient was eval by physical and Occupational Therapy and speech therapy. Patient also with elevated blood pressure and was started on Aldactone. Patient be discharged home with recommendation to follow-up outpatient with his primary
survey research center director for outpatient stress test or with [facility] cardiology.
Discharge Plan
-
Patient Disposition: Home (Routine Discharge)
Discharge Diagnosis/Procedures: New onset of atrial fibrillation
CVA
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
Cardiomyopathy
Hypokalemia
Primary Hypertension-uncontrolled
Condition: Fair
Diet: Low Cholesterol
Activity: As tolerated
Driving Restrictions: As prior to admission
Blood Work: BMP next week and then again in 3 weeks via primary doctor or survey research center director.
Other Services: VN and PT
Activity Restrictions/Additional Instructions:
Outpatient Lexican scan recommended. Follow up your primary OP survey research center director or Dr. Liz.
Referrals:
Shelli Britton PA [Family Provider] - in less than 1 week
Wilver Liz MD [Active] - in one to two weeks
Additional Discharge Medication Instructions: Plavix has been discontinued.
Prescriptions:
New
spironolactone 25 mg Tablet
12.5 mg PO DAILY 30 Days Qty: 15 0RF
Eliquis 5 mg Tablet
5 mg PO BID 30 Days Qty: 60 0RF
Continued
amlodipine 10 MG tablet
10 mg PO QPM
telmisartan 80 MG tablet
80 mg PO QPM
allopurinol 300 MG tablet
300 mg PO QPM
nitroglycerin 0.4 MG tablet, sublingual
0.4 mg sublingual [id number] PRN (Reason: chest pain) Qty: 25 2RF
finasteride 5 mg tablet
5 mg PO QPM
carvedilol phosphate 20 mg capsule, ER multiphase 24 hr
20 mg PO QPM
aspirin 81 MG tablet,chewable
81 mg PO QPM
Discontinued
celecoxib 200 mg capsule
200 mg PO QPM
clopidogrel [Plavix] 75 mg Tablet
75 mg PO DAILY
Discharge Orders:
Discharge Patient (As Directed); Ordered 05/27/24
Ordered By: Familia Linares
Discharge Date and Time
Discharge Date/Time: 05/27/24 16:59
Print Language: URUGUAYAN
[2024-05-27 15:48] VITALS: BP 164/94
== END 2024-05-27 16:59 | disposition home or self-care (01) | DRG 66 ==
LOC: 4 EAST ACU 13:53
PROVIDERS: Emergency Medicine; ADMITTING PHYSICIAN Hospitalist; ATTENDING PHYSICIAN Hospitalist; CONSULT PHYSICIAN Internal Medicine Cardiovascular Disease; EMERGENCY PHYSICIAN Emergency Medicine; FAMILY PHYSICIAN Physician Assistant Medical; OTHER PHYSICIAN Psychiatry & Neurology Neurology
DX: I63.211 Cerebral infarction due to unspecified occlusion or stenosis of right vertebral artery (principal); I10 Essential (primary) hypertension; R47.1 Dysarthria and anarthria; R13.10 Dysphagia, unspecified; H02.401 Unspecified ptosis of right eyelid; R42 Dizziness and giddiness; I48.91 Unspecified atrial fibrillation; I25.10 Atherosclerotic heart disease of native coronary artery without angina pectoris; I25.2 Old myocardial infarction; Z95.5 Presence of coronary angioplasty implant and graft; E78.00 Pure hypercholesterolemia, unspecified; H54.61 Unqualified visual loss, right eye, normal vision left eye; M10.9 Gout, unspecified; N40.0 Benign prostatic hyperplasia without lower urinary tract symptoms; E87.6 Hypokalemia; R73.03 Prediabetes; R06.02 Shortness of breath; Z79.02 Long term (current) use of antithrombotics/antiplatelets; Z79.82 Long term (current) use of aspirin; Z79.899 Other long term (current) drug therapy; Z90.49 Acquired absence of other specified parts of digestive tract; Z88.5 Allergy status to narcotic agent; Z88.8 Allergy status to other drugs, medicaments and biological substances; Z82.3 Family history of stroke; Z82.49 Family history of ischemic heart disease and other diseases of the circulatory system
CPT/HCPCS: 70450; 70548; 70551; 80048; 80053; 80061; 83036; 83735; 84443; 84484; 85025; 85027; 87811; 92523; 92610; 93005; 93306; 97162; 97166; 99285; A9585

== ENCOUNTER → 2024-06-09 08:24 | Outpatient (REF) | payer BC, SELFPAY ==
[2024-06-09 12:32] LABS: % Basophils 0.4 % (0-2); % Eosinophils 1.5 % (0-6); % Immature Granulocytes 0.3 % (0-0.5); % Lymphocytes 12.3 % (20.5-51.1); % Monocytes 8.9 % (1.7-9.3); % Neutrophils 76.6 % (42.2-75.2); Absolute Eosinophils 0.1 10^3/uL (0-0.7); Absolute Monocytes 0.7 10^3/uL (0.1-0.6); Hematocrit 45.3 % (39.0-52.0); Hemoglobin 15.5 g/dL (13.0-18.0); Mean Corp Hgb Conc. 34.2 g/dL (33.0-37.0); Mean Corpuscular Hgb 29.4 pg (27.0-31.0); Nucleated Red Blood Cells % 0 % (-); Platelet Count 160 10^3/uL (130-400); Red Blood Cell Count 5.27 10^6/uL (4.70-6.10); Red Cell Dist. Width 15.3 % (11.5-14.5); White Blood Cell Count 7.8 10^3/uL (4.8-10.8)
[2024-06-09 12:44] LABS: ALT (SGPT) 25 U/L (0-50); AST (SGOT) 26 U/L (17-59); Albumin 4.2 g/dl (3.5-5.0); Alkaline Phosphatase 94 U/L (38-126); Blood Urea Nitrogen 19 mg/dl (9-20); Calcium 9.5 mg/dl (8.4-10.2); Carbon Dioxide 29 mmol/L (22-30); Chloride 104 mmol/L (98-107); Glucose 110 mg/dl (70-99); Potassium 3.9 mmol/L (3.5-5.1); Sodium 144 mmol/L (135-145); Total Protein 6.2 g/dl (6.3-8.2); eGFR > 60.00
[2024-06-09 13:07] LABS: NT-proBNP 1300 pg/ml
== END ==
LOC: HWLAB 08:24
PROVIDERS: ATTENDING PHYSICIAN Physician Assistant Medical
DX: I10 Essential (primary) hypertension (principal); I48.0 Paroxysmal atrial fibrillation; R94.30 Abnormal result of cardiovascular function study, unspecified
CPT/HCPCS: 36415; 80053; 83880; 85025

== ENCOUNTER 2024-08-05 14:11 | Inpatient (IN) | payer BC, MEDICARE, SELFPAY ==
[2024-08-05] VITALS (41 sets, daily range): BP systolic 119–208; BP diastolic 87–159; BMI 33.3
--- NOTE | 2024-08-05 08:28 | ED.GENMED ---
History of Present Illness
<LINH Falcon - Last Filed: 08/05/24 10:22>
General
Chief Complaint: Breathing Problem
Source: patient
Exam Limitations: none
Time Seen by Provider: 08/05/24 08:05
Nursing documentation reviewed up to this point in time: agreed with
History of Present Illness
History of Present Illness:
Patient is a 69 year-old male with history of A-fib, on Eliquis CAD, stents BPH hypertension stroke(May 2024) presents to the ER for evaluation. 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
following with [facility]. His amlodipine was stopped and he was placed on diltiazem by his kitchen porter at [facility] but he stopped it around 2 to 3 weeks ago. In addition his Lasix was stopped 2 to 3 weeks ago as well by his cariologist at [facility]. He has
been taking Eliquis has not missed a dose. For the past 1 to 2 weeks he has been very short of breath and has had difficulty sleeping and has been short of breath with exertion. He denies any actual chest pain. Patient presents with with
increased shortness of breath since last night.
Patient has had lower extremity swelling.
Patient reports since he was hospitalized with a stroke he describes a weird sensation in his throat. He reports that his stroke presented he was clearing his throat any difficulty swallowing. Since then he has had the same persistent symptoms.
He has a kitchen porter as documented Dr. Kenji Bearden and in addition was scheduled for cardioversion here in August.
Past History
<LINH Falcon - Last Filed: 08/05/24 10:22>
Past History
ED Past Medical History: HTN, Hypercholesterolemia and Other (Gout); Negative NIDDM
ED Past Surgical History: Cholecystectomy
Social History
Tobacco: Non-smoker
Alcohol: Occasional
Drug: None
Personal:
Living: with family
Employment: Employed
Review of Systems
<LINH Falcon - Last Filed: 08/05/24 10:22>
Review of Systems
Allergies reviewed?: Yes
Other source history: family
All Other Systems: ROS reviewed and negative except as documented in HPI and ROS
Constitutional: Reports no symptoms
EENT: Reports no symptoms
Respiratory: Reports trouble breathing
Cardiac: Reports no symptoms
ABD/GI: Reports no symptoms
: Reports no symptoms
Musculoskeletal: Reports other (Lower extremity swelling)
Skin: Reports no symptoms
Neurological: Reports no symptoms
Psychiatric: Reports no symptoms
Phy Exam
<LINH Falcon - Last Filed: 08/05/24 10:22>
General Physical Exam
General Presentation: no apparent distress
General age: appears stated age
General Skin: warm and dry
General Habitus: normal
General Mental: alert
General Hydration: dry mucous membranes
Cardiovascular Exam
Cardiovascular Exam: irregularly irregular and tachycardia
Pulmonary Exam
Pulmonary Exam: lungs clear and no respiratory distress
Neurological Exam
Neurological Exam: alert and oriented x3
Musculoskeletal Exam
Musculoskeletal Exam: other (+edema to b/l lower legs )
Skin Exam
Skin Exam: normal color and warm/dry
Psychiatric Exam
Psychiatric Exam: normal mood/affect
Scores
<LINH Falcon - Last Filed: 08/05/24 10:22>
Heart Failure Risk
Heart Failure Risk Score: Not Applicable
Course
<LINH Falcon - Last Filed: 08/05/24 10:22>
Orders/Labs/Results
Orders:
Orders
08/05/24 07:33
EKG [Electrocardiogram (*1)] Urgent
Reason for Study: Tachycardia
EKG- Treatment ONCE
08/05/24 08:17
Complete Blood Count/With Diff Urgent
Comprehensive Metabolic Panel Urgent
NT-proBNP Urgent
Troponin I Urgent
08/05/24 08:47
Diltiazem HCl [Cardizem] 10 mg IV NOW STA
08/05/24 08:51
Chest [CR Chest - 2 Views ] Urgent
Comment:
Reason For Exam: sob
08/05/24 09:00
Diltiazem 125 mg/125 ml Nss [Cardizem] 125 mg in 125 ml IV PER PROTOCOL
Initial dose in mg/hr, then titrate:: 5
Titrate to keep:: Heart rate 80-100 bpm
Titrate by mg/hr:: 5 mg/hr
Frequency of titrations (minutes):: 15
Maximum dose in mg/hr:: 15
08/05/24 09:27
Labetalol HCl [Trandate] 10 mg IV NOW STA
08/05/24 09:52
ECG [Electrocardiogram (*1)] Urgent
Reason for Study: Chest Pain
EKG- Treatment ONCE
08/05/24 10:04
Furosemide [Lasix] 40 mg IV NOW STA
08/05/24 10:30
Labetalol HCl [Trandate] 400 mg Empty Viaflex Container 100 ml [Viaflex Empty Container] 0 ml IV PER PROTOCOL
Initial dose in mg/min, then titrate:: 1
Titrate to keep:: SBP 140 - 160 mmHg
Titrate by mg/min:: 0.5 mg/min
Frequency of titrations (minutes):: 15
Additional Titration Instructions:: Bolus with 20 mg IV every 15 minutes PRN dose increase
Maximum dose in mg/min:: 4
Begin to taper infusion when:: Remained at goal for 4hrs
Taper by mg/min:: 0.5 - 1 mg/min
Frequency of taper (minutes) if patient maintains goal:: 30
Taper to off?: Yes
If infusion off & no longer maintaining goal:: Contact Provider
08/05/24 10:53
CARDIOLOGY CONSULT Routine
Consulting Provider: Yaz Marion
Was physician already notified: Yes
Reason for consult: Rapid A-Flutter, CHF, fluid overload, hypertension
08/05/24 11:30
Labetalol HCl [Trandate] 400 mg Empty Viaflex Container 100 ml [Viaflex Empty Container] 0 ml IV PER PROTOCOL
Continuous dose without titration in mg/min:: 1
Additional Titration Instructions:: Do not titrate. Rate change by provider order only.
Abnormal Lab Results
08/05/24
08:17
RDW 15.6 H %
(11.5-14.5)
MPV 10.9 H fL
(7.4-10.4)
Abs Immat Gran (auto) 0.1 H 10^3/uL
(0-0.05)
Absolute Neuts (auto) 9.1 H 10^3/uL
(1.4-6.5)
Absolute Lymphs (auto) 0.9 L 10^3/uL
(1.2-3.4)
Immature Gran % 0.6 H %
(0-0.5)
Neutrophils % 85.0 H %
(42.2-75.2)
Lymphocytes % 7.9 L %
(20.5-51.1)
BUN 39 H mg/dl
(9-20)
Glucose 146 H mg/dl
(70-99)
ALT 52 H U/L
(0-50)
Total Protein 6.0 L g/dl
(6.3-8.2)
08/05/24 08:17
08/05/24 08:17
Vital Signs
Initial and Last Documented VS:
Initial Vital Signs
Temp Pulse Resp BP Pulse Ox
98.2 F 150 22 208/109 96
08/05/24 07:27 08/05/24 07:27 08/05/24 07:27 08/05/24 07:27 08/05/24 07:27
Last Documented Vital Signs
Temp Pulse Resp BP Pulse Ox
98.2 F 100 18 146/120 96
08/05/24 07:27 08/05/24 13:15 08/05/24 13:15 08/05/24 13:15 08/05/24 11:15
Thermodynamicist consulted with Physician
Thermodynamicist consulted with physician?: Yes
Name of Physician Consulted: Dr Arguelles
<Kristopher Arguelles, DO - Last Filed: 08/05/24 13:52>
Orders/Labs/Results
Orders:
Orders
08/05/24 07:33
EKG [Electrocardiogram (*1)] Urgent
Reason for Study: Tachycardia
EKG- Treatment ONCE
08/05/24 08:17
Complete Blood Count/With Diff Urgent
Comprehensive Metabolic Panel Urgent
NT-proBNP Urgent
Troponin I Urgent
08/05/24 08:47
Diltiazem HCl [Cardizem] 10 mg IV NOW STA
08/05/24 08:51
Chest [CR Chest - 2 Views ] Urgent
Comment:
Reason For Exam: sob
08/05/24 09:00
Diltiazem 125 mg/125 ml Nss [Cardizem] 125 mg in 125 ml IV PER PROTOCOL
Initial dose in mg/hr, then titrate:: 5
Titrate to keep:: Heart rate 80-100 bpm
Titrate by mg/hr:: 5 mg/hr
Frequency of titrations (minutes):: 15
Maximum dose in mg/hr:: 15
08/05/24 09:27
Labetalol HCl [Trandate] 10 mg IV NOW STA
08/05/24 09:52
ECG [Electrocardiogram (*1)] Urgent
Reason for Study: Chest Pain
EKG- Treatment ONCE
08/05/24 10:04
Furosemide [Lasix] 40 mg IV NOW STA
08/05/24 10:30
Labetalol HCl [Trandate] 400 mg Empty Viaflex Container 100 ml [Viaflex Empty Container] 0 ml IV PER PROTOCOL
Initial dose in mg/min, then titrate:: 1
Titrate to keep:: SBP 140 - 160 mmHg
Titrate by mg/min:: 0.5 mg/min
Frequency of titrations (minutes):: 15
Additional Titration Instructions:: Bolus with 20 mg IV every 15 minutes PRN dose increase
Maximum dose in mg/min:: 4
Begin to taper infusion when:: Remained at goal for 4hrs
Taper by mg/min:: 0.5 - 1 mg/min
Frequency of taper (minutes) if patient maintains goal:: 30
Taper to off?: Yes
If infusion off & no longer maintaining goal:: Contact Provider
08/05/24 10:53
CARDIOLOGY CONSULT Routine
Consulting Provider: Yaz Marion
Was physician already notified: Yes
Reason for consult: Rapid A-Flutter, CHF, fluid overload, hypertension
08/05/24 11:30
Labetalol HCl [Trandate] 400 mg Empty Viaflex Container 100 ml [Viaflex Empty Container] 0 ml IV PER PROTOCOL
Continuous dose without titration in mg/min:: 1
Additional Titration Instructions:: Do not titrate. Rate change by provider order only.
Abnormal Lab Results
08/05/24
08:17
RDW 15.6 H %
(11.5-14.5)
MPV 10.9 H fL
(7.4-10.4)
Abs Immat Gran (auto) 0.1 H 10^3/uL
(0-0.05)
Absolute Neuts (auto) 9.1 H 10^3/uL
(1.4-6.5)
Absolute Lymphs (auto) 0.9 L 10^3/uL
(1.2-3.4)
Immature Gran % 0.6 H %
(0-0.5)
Neutrophils % 85.0 H %
(42.2-75.2)
Lymphocytes % 7.9 L %
(20.5-51.1)
BUN 39 H mg/dl
(9-20)
Glucose 146 H mg/dl
(70-99)
ALT 52 H U/L
(0-50)
Total Protein 6.0 L g/dl
(6.3-8.2)
08/05/24 08:17
08/05/24 08:17
Vital Signs
Initial and Last Documented VS:
Initial Vital Signs
Temp Pulse Resp BP Pulse Ox
98.2 F 150 22 208/109 96
08/05/24 07:27 08/05/24 07:27 08/05/24 07:27 08/05/24 07:27 08/05/24 07:27
Last Documented Vital Signs
Temp Pulse Resp BP Pulse Ox
98.2 F 100 18 146/120 96
08/05/24 07:27 08/05/24 13:15 08/05/24 13:15 08/05/24 13:15 08/05/24 11:15
<LINH Falcon - Last Filed: 08/05/24 10:22>
MDM/Problems Addressed
Differential Diagnosis Includes:
Not limited to CHF rapid a flutter hypertension emergency
MDM/Problems Addressed:
As documented patient is a 6-year-old male seen here in May for stroke diagnosed with A-fib at that time on Eliquis. He is followed by [facility] however also is scheduled for cardiac ablation by Dr. Ndiaye in [place]. Patient stopped his diltiazem on
his own several weeks ago and his physicians at [facility] cardi[facility] stopped his Lasix. He presents very short of breath worse with laying flat at night also associate with some lower extremity swelling. He was found to be in rapid a flutter however
lungs are clear not patient does have swelling on exam. Patient found to be very hypertensive. Evaluated by ED physician given IV labetalol which has improved his heart rate though he still remains in a flutter and has improved his blood pressure.
Will place on labetalol drip for blood pressure and heart rate control will give Lasix, BNP is elevated along with mild congestion on chest x-ray .
Will treat for heart failure. Cardiology made aware patient needed for CHF and rapid a flutter and hypertensive emergency
Chronic conditions affecting care:
afib on eliquis , hx of cva stopped taking meds
<LINH Falcon - Last Filed: 08/05/24 10:22>
*Radiology
Radiology exam reviewed: radiology read reviewed
*Pulse Oximetry
Patient hypoxic: yes
*EKG
Interpreted by ED Provider?: Yes
Interpretation: abnormal
Heart Rate: 150
Rhythm: atrial flutter
*Visitor Use Assistant Interpretation
Rate: tachycardiac
Interpretation: abnormal
Heart Rate: 150
Rhythm: atrial flutter
*Critical Care Note
Total Time (30-74mins, 75-104mins- exclusive of procedures): Not Applicable
comment:
Critical care statement: A total of 40 minutes of critical care time was provided for this patient. This includes management of unstable vital signs, evaluation of the patient at bedside, reviewing the patient's pertinent medical records, discussion
with consultants, review of old EKGs and review of pertinent medical records. This time with separate from time utilized to perform the aforementioned documented procedures
<Kristopher Arguelles DO - Last Filed: 08/05/24 13:52>
*Critical Care Note
Total Time (30-74mins, 75-104mins- exclusive of procedures): 40 minutes
Data Reviewed
Review of Other/Old Records Reveals: Discharge Summary
Source: patient and significant other
<LINH Falcon - Last Filed: 08/05/24 10:22>
Patient Management
Discussion with other providers: Barrel Cooper (Discussed with cardiology Dr. Marion)
<Kristopher Arguelles DO - Last Filed: 08/05/24 13:52>
Patient Management
Discussion with other providers: Hospitalist
ED Attending Note
<LINH Falcon - Last Filed: 08/05/24 10:22>
-
Portions of this chart may have been created with voice recognition software.� Occasional wrong word or��sound alike� substitutions may have occurred due to the inherent limitations of voice recognition software.
<Kristopher Arguelles DO - Last Filed: 08/05/24 13:52>
ED Attending Note
Patient seen and examined by attending physician: Yes
I performed the substantive portion of visit, reviewed & personally made and approve the management plan that is documented in note by myself or HUEY.: Yes
ED Attending Note:
69-year-old male who presents with dyspnea. Found to be in rapid a flutter. Also has some lower extremity swelling. Does admit to some orthopnea but currently my evaluation denies shortness of breath. Found to be quite hypertensive. Exam:
Tachycardic, lower extremity edema noted, no respiratory distress assessment and plan: Rate control and blood pressure control with labetalol. Continue manage blood pressure and titrate as needed. Consult cardiology. IV diuretics and admit
Discharge Plan
Departure
Patient Disposition: Admit
Date of Disposition: 08/05/24
Time of Disposition: 10:19
Admit to: IMU
Admit to doctor: hospitalist
Presentation/result/management discussed w/ accepting MD/DO: Hospitalist
Condition: Fair
Covid-19: Not Applicable
Discharge Problem:
Hypertensive emergency, Congestive heart failure (CHF), Rapid atrial flutter
Prescriptions:
No Action
telmisartan 80 MG tablet
80 mg PO QPM
allopurinol 300 MG tablet
300 mg PO QPM
nitroglycerin 0.4 MG tablet, sublingual
0.4 mg sublingual [id number] PRN (Reason: chest pain) Qty: 25 2RF
finasteride 5 mg tablet
5 mg PO QPM
carvedilol phosphate 20 mg capsule, ER multiphase 24 hr
20 mg PO QPM
aspirin 81 MG tablet,chewable
81 mg PO DAILY
celecoxib [Celebrex] 200 mg Capsule
200 mg PO HS
Eliquis 5 mg tablet
5 mg PO BID
Referrals:
Shelli Britton PA [Family Provider] -
Interventions
Interventions:
*Risk Screen - Suicide Last Done: 08/05/24 07:27
*General Assessment Last Done: 08/05/24 07:27
*Neglect/Abuse Screening Last Done: 08/05/24 07:27
ED- Fall Risk Assessment Last Done: 08/05/24 08:03
*ED COVID-19 Vaccine History Last Done: 08/05/24 07:27
ED- Cardiac Assessment Last Done: 08/05/24 08:03
ED- Pulmonary Assessment Last Done: 08/05/24 08:03
Discharge Date and Time
Print Language: IRISH
[2024-08-05 08:39] LABS: % Basophils 0.4 % (0-2); % Eosinophils 0.7 % (0-6); % Immature Granulocytes 0.6 % (0-0.5); % Lymphocytes 7.9 % (20.5-51.1); % Monocytes 5.4 % (1.7-9.3); Absolute Eosinophils 0.1 10^3/uL (0-0.7); Absolute Immature Granulocytes 0.1 10^3/uL (0-0.05); Absolute Lymphocytes 0.9 10^3/uL (1.2-3.4); Absolute Monocytes 0.6 10^3/uL (0.1-0.6); Absolute Neutrophils 9.1 10^3/uL (1.4-6.5); Hematocrit 48.4 % (39.0-52.0); Mean Corp Hgb Conc. 33.1 g/dL (33.0-37.0); Mean Corpuscular Hgb 29.5 pg (27.0-31.0); Mean Corpuscular Volume 89.3 fL (80.0-94.0); Mean Platelet Volume 10.9 fL (7.4-10.4); Nucleated Red Blood Cells % 0 % (-); Platelet Count 202 10^3/uL (130-400); Red Blood Cell Count 5.42 10^6/uL (4.70-6.10); Red Cell Dist. Width 15.6 % (11.5-14.5); White Blood Cell Count 10.7 10^3/uL (4.8-10.8)
[2024-08-05 08:47] LABS: ALT (SGPT) 52 U/L (0-50); AST (SGOT) 47 U/L (17-59); Albumin 4.1 g/dl (3.5-5.0); Alkaline Phosphatase 87 U/L (38-126); Blood Urea Nitrogen 39 mg/dl (9-20); Calcium 9.2 mg/dl (8.4-10.2); Carbon Dioxide 28 mmol/L (22-30); Chloride 102 mmol/L (98-107); Estimated Creatinine Clearance 60 ml/min; Glucose 146 mg/dl (70-99); Potassium 4.3 mmol/L (3.5-5.1); Sodium 140 mmol/L (135-145)
[2024-08-05 08:58] LABS: NT-proBNP 3290 pg/ml; Troponin I 0.025 ng/ml
[2024-08-05] MEDS: TRANDATE 10 MG IV (09:29)
[2024-08-05] MEDS: LASIX 40 MG IV ×2 (10:59→17:07)
[2024-08-05] MEDS: TRANDATE 80 MG IV (11:58)
--- NOTE | 2024-08-05 12:22 | CON.CAR ---
Addendum entered and electronically signed by Yaz Marion MD 08/05/24 14:49:
I saw and examined the patient.
The TUFTING MACHINE OPERATOR's note was reviewed and I agree with the note.
Comment: Consultation
Consultation Request
Date/Time Consultation Requested: 08/05/24 1053
Date/Time Consultation Performed: 08/05/24 1150
Requesting Provider: Dr. Huggins
Performing Provider: Kamla MELTON for Dr. Marion
Reason for Consultation: Aflutter, CHF, hypertension
Medical History
-
Chief Complaint: SOB
History of Present Illness:
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 He was recently hospitalized here (05/2024) with new stroke. He was
discovered to have AFIB and aflutter (new diagnoses), as well as CM with EF 40-45%. Plan is for PVI with Dr. Sharpe next month. At home, he felt like he was feeling worse and thought it was due to his diltiazem so he stopped this medication. He
also stopped his Aldactone as he already urinates a lot and did not want to take anything that would cause him to urinate more. He does not weigh himself daily. Currently he is already feeling better with a better blood pressure and rate control.
On exam he has bibasilar rales and irregularly irregular rhythm with a normal S1-S2 no murmur rubs or gallops were appreciated,, no lower extremity edema he is obese. Overall, I think today's admission is a result of noncompliance with medical
plan. His atrial fibrillation was in rapid ventricular response when he arrived and this has been easily controlled with IV labetalol. Will transition to p.o. Coreg at a higher dose tomorrow. Diltiazem is not ideal given his cardiomyopathy.
Given plan for rhythm control already in place would not pursue DAE cardioversion currently. Blood pressure is elevated but again we are controlling that with labetalol drip. Once he is euvolemic would favor transitioning telmisartan to Entresto
if he can afford it. We will ask case management to chanel this out for him. We will continue to evaluate recent for his heart failure with mildly reduced EF. We discussed the importance of daily weight. I favor resuming Aldactone once we are
done diuresing him. I explained that this has benefits both in diuresis and GDMT.
We will follow-up.
Original Note:
Consultation
Consultation Request
Date/Time Consultation Requested: 08/05/24 1053
Date/Time Consultation Performed: 08/05/24 1150
Requesting Provider: Dr. Huggins
Performing Provider: Kamla MELTON for Dr. Marion
Reason for Consultation: Aflutter, CHF, hypertension
Medical History
-
Chief Complaint: SOB
History of Present Illness:
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 He was recently hospitalized here (05/2024) with new stroke. He was
discovered to have AFIB and aflutter (new diagnoses), as well as CM with EF 40-45%. He was started on Eliquis for OAC. After d/c, he went to his cardiology office and amlodipine was transitioned to diltiazem. He later stopped diltiazem because he
was SOB, which did not help. Last admit, he was started on spironolactone, but his cardiology team stopped it after he complained about having to urinate more. He is now here because he has had continued SOB and is is messing with his sleep. He
reports orthopnea and edema. He doesn't monitor weights, but according to ER scale he is up 3 kgs since admission 2 months ago. Of note, he has seen Dr. Ndiaye and there are plans for ablation next month.
Past Medical History
Past Medical History: Arrhythmias, CAD, CVA, HTN, Hypercholesterolemia and Other (cardiomyopathy, as above)
Social History
Tobacco: Non-Smoker
Alcohol: None
Family History
Family History: CAD (dad [place] age 73)
Allergies / Home Medications
Allergy/AdvReac Type Severity Reaction Status Date / Time
codeine [Codeine] Allergy vomiting Verified 08/05/24 07:33
colesevelam [From WelChol] Allergy Unknown Verified 08/05/24 07:33
lisinopril Allergy throat Verified 08/05/24 07:33
problems
sulfamethoxazole Allergy Unknown Verified 08/05/24 07:33
[From Bactrim]
trimethoprim [From Bactrim] Allergy Unknown Verified 08/05/24 07:33
�Medication �Instructions �Recorded �Confirmed �Type
allopurinol 300 mg tablet 300 mg PO QPM Gout 05/31/21 08/05/24 History
telmisartan 80 mg tablet 80 mg PO QPM Blood pressure 05/31/21 08/05/24 History
nitroglycerin 0.4 mg sublingual 0.4 mg sublingual [id number] PRN 06/01/21 08/05/24 Rx
tablet chest pain #25 tabs
aspirin 81 mg chewable tablet 81 mg PO DAILY Blood Clot 05/25/24 08/05/24 History
Prevention/Tx
carvedilol phosphate 20 mg 20 mg PO QPM Blood Pressure 05/25/24 08/05/24 History
capsule,[id number] multiphase
finasteride 5 mg tablet 5 mg PO QPM Urinary Issue 05/25/24 08/05/24 History
apixaban 5 mg tablet (Eliquis) 5 mg PO BID Blood Clot 08/05/24 08/05/24 History
Prevention/Tx
celecoxib 200 mg capsule (Celebrex) 200 mg PO HS pain 08/05/24 08/05/24 History
Review of Systems
-
History Source: Patient
All other systems: Negative unless noted
EENT: Other (throat clearing since stroke)
Respiratory: Trouble Breathing and Other (orthopnea)
Musculoskeletal: Edema
Physical Exam
Vital Signs
Temp Pulse Resp BP Pulse Ox
98.2 F 149 24 186/157 96
08/05/24 07:27 08/05/24 12:16 08/05/24 12:16 08/05/24 12:16 08/05/24 11:15
Lab Results
08/05/24 08:17
08/05/24 08:17
Troponin I 0.025 ng/ml 08/05/24 08:17
Ynu-Z-[id number] Pept 3290 pg/ml 08/05/24 08:17
Physical Exam
General: Well Developed and No Apparent Distress
HEENT: Normocephalic and Anicteric
Respiratory: Other (diminished to bases)
Cardiac: Irregular Rhythm (tachycardia) and Peripheral Edema (mild BLE edema)
Skin: Warm and Dry
Neuro: AO x 3
Psych: Calm
Impression / Plan
-
AFIB, Aflutter (atypical): persistent
-rates fast. IV BB is ordered for BP and HR. Monitor telemetry.
-Continue Eliquis for OAC for [id number] score of 6 for HTN, CAD, age, CVA, and CHF. There was an issue at the pharmacy and he briefly wasn't taking Eliquis, but has been compliant of recent.
-he has ablation scheduled with Dr. Ndiaye next month
Severe HTN:
-now getting IV labetalol, which requires intensive monitoring
-OP meds include telmisartan and coreg CR- continue and adjust as needed
[id number] HFmEF:
-agree with IV Lasix, which requires intensive monitoring- I ordered 40 mg IV BID
-CHF education, limit sodium and fluid
CM:
-EF 45-50%, type unknown- plan was for OP stress test, but he has not had that done yet
-on BB and ARB as OP. Aldactone stopped because he didn't want to urinate so much. However, clearly, he will need to be on diuretic moving forward. Chanel GDMT.
CAD with hx stenting:
-stable without CP
-on ASA/Eliquis
-statin intolerant per chart
Recent CVA 05/2024:
-still reports throat sensation ever since. Management per primary.
Data Reviewed
-
EKG: Tracing Personally Visualized and interpreted (Atrial flutter 124 BPM)
Radiology: Report Reviewed by me (CXR: Mild pulmonary vascular congestion. 2. Minimal airspace disease within the left lower lobe, which may represent pneumonia, subsegmental atelectasis, or alveolar pulmonary edema. 3. Small left pleural effusion.)
Medical Tests (Nuc Med, Echo etc): Report Reviewed by me (echo 05/26/24: EF 40-45% .Mild MR, AR, TR. Aortic root size at sinus of Valsalva measuring 4.8 to 5.0 cm)
Labs: Labs Reviewed by me
--- NOTE | 2024-08-05 13:56 | HPS.HSE ---
Family Physician
-
Family Physician: Shelli Britton
Chief Complaint
-
Shortness of breath
History of Present Illness
69 y/o male with past medical history of A-fib on Eliquis, Stroke in May 2024, CAD with history of stent, HFmrEF, HTN, BPH, Gout, Hypokalemia, and Obesity presented with shortness of breath. Patient says he had been experiencing orthopnea
recently over the past 1 week or so, he had also been experiencing shortness of breath while sitting in a chair. He denied any chest pain, fever, palpitations, cough or any other symptoms.
Medical History
Past Medical History
Past Medical History: Reports Other (As per HPI above)
Past Surgical History: Reports Cholecystectomy
Social History
Tobacco: Non-smoker
Alcohol: None
Drug: None
Family History
Family History: Cancer and Other (Stroke)
Allergies / Home Medications
Allergies reflects when Allergies were last updated in [employer].
Home Medications with original date entered in [employer]
Allergy/Medication List:
Allergies
Allergy/AdvReac Type Severity Reaction Status Date / Time
codeine [Codeine] Allergy vomiting Verified 08/05/24 07:33
colesevelam [From WelChol] Allergy Unknown Verified 08/05/24 07:33
lisinopril Allergy throat Verified 08/05/24 07:33
problems
sulfamethoxazole Allergy Unknown Verified 08/05/24 07:33
[From Bactrim]
trimethoprim [From Bactrim] Allergy Unknown Verified 08/05/24 07:33
Home Medications
allopurinol 300 mg tablet 300 mg PO QPM Gout 05/31/21
telmisartan 80 mg tablet 80 mg PO QPM Blood pressure 05/31/21
nitroglycerin 0.4 mg sublingual tablet 0.4 mg sublingual [id number] PRN chest pain #25 tabs 06/01/21
aspirin 81 mg chewable tablet 81 mg PO DAILY Blood Clot Prevention/Tx 05/25/24
carvedilol phosphate 20 mg capsule,ext.[id number] multiphase 20 mg PO QPM Blood Pressure 05/25/24
finasteride 5 mg tablet 5 mg PO QPM Urinary Issue 05/25/24
apixaban 5 mg tablet (Eliquis) 5 mg PO BID Blood Clot Prevention/Tx 08/05/24
celecoxib 200 mg capsule (Celebrex) 200 mg PO HS pain 08/05/24
Review of Systems
-
A 12 point ROS was completed and negative except as noted: Yes
Physical Exam
Vital Signs
Vital Signs
Temp Pulse Resp BP Pulse Ox
98.2 F 100 18 146/120 96
08/05/24 07:27 08/05/24 13:15 08/05/24 13:15 08/05/24 13:15 08/05/24 11:15
Physical Exam
General: No Apparent Distress, Comfortable and Conversant
HEENT: NormoCephalic, Moist mucous membranes and Atraumatic
Respiratory: Rales
Cardiac: S1/S2 and Irregular Rhythm
GI: Soft, Non Tender and Normal Bowel Sounds
Musculoskeletal: No Cyanosis, Edema, Left Lower Extremity and Edema, Right Lower Extremity
Skin: Warm and Dry
Neuro: Awake, Alert and AO x 3
Psych: Calm and Intact Judgment/Insight
Laboratory Results
-
08/05/24 08:17
08/05/24 08:17
Laboratory Results
Total Bilirubin 1.0 mg/dl (0.2-1.3) 08/05/24 08:17
AST 47 U/L (17-59) 08/05/24 08:17
ALT 52 U/L (0-50) H 08/05/24 08:17
Alkaline Phosphatase 87 U/L (38-126) 08/05/24 08:17
Troponin I 0.025 ng/ml 10/24/24 08:17
Impression/Plan
-
Chest X-Ray (as per radiologist's report)
IMPRESSION:
1. Mild pulmonary vascular congestion.
2. Minimal airspace disease within the left lower lobe, which may represent pneumonia, subsegmental atelectasis, or alveolar pulmonary edema.
3. Small left pleural effusion.
Assessment/Plan
Presentation with worsening SOB
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
-IV Lasix given in ER with symptomatic relief
-Continue IV Lasix
-Daily weights and I's and O's
-SOB could also be due to rapid AFib/Flutter
-Patient was supposed to get an ablation in August [address] Ndiaye (modeling manager)
-Monitor in IVU
AFib/Flutter with RVR
-Labetalol given in ER with good improvement in HR
-Continue rate control for now
-Appreciate cardiology
-Monitor in IVU
-Continue Eliquis
Stroke in May 2024
CAD with history of stent
-Continue home medications Aspirin and Eliquis
Hypertension
-On beta-juan, continue
BPH
-Continue Finasteride
Gout
-Continue Allopurinol
Hypokalemia
-Monitor BMP
Obesity
DVT Prophylaxis: Eliquis and SCDs
Code Status: Full Code
--- NOTE | 2024-08-05 14:48 | W.PN.UPDATE ---
Update Note
Progress Note Update
Correction to my note- EF is 40-45% (not 45-50%).
--- NOTE | 2024-08-05 16:59 | CM ---
Priced Jardiance, Farxiga and Entresto thr insurance, .
Jardiance
- requires prior authorization,
- estimated cost of Jardiance is $41.35/30 d supply @ retail [facility]
Farxiga
- requires prior authorization,
- estimated cost of Farxiga is $34.35/ 30 d supply @ retail pharm or $40/ 90 d supply via mail order
Entresto
- estimated cost is $327.82/30 d supply @ retail pharm or $125/90 d supply via mail order
--- NOTE | 2024-08-05 17:03 | CM ---
CM following for DC planning needs.
Met w/ patient and ex-spouse at bedside.
Pt. resides w/ her at her 2 story home. He is functionally indep. at baseline w/ ADLs, mobility; still works full-time.
Pt. has Rx plan and uses [facility] for prescription needs.
Reviewed estimated cost of medication w/ patient. He will discuss w/ MD.
Antic. DC to home once stable. No needs anticipated.
CM to follow.
[2024-08-05 17:43] LABS: Troponin I 0.025 ng/ml
[2024-08-05] MEDS: PROSCAR 5 MG PO (18:00)
[2024-08-05] MEDS: ZYLOPRIM 300 MG PO (18:00)
--- NOTE | 2024-08-05 19:19 | PTCARENOTE ---
Pt received from ED with SOB and atrial flutter. He ddenies any discomfort. Pt diuresing well after IV lasix. Pt on labetalol infusion, BP's coming down, now @124/94. Plan to give coreg and stop labetolol infusion 30 minutes after coreg dose per
. Telemetry shows atrial flutter @70-90. Pt starting to learn about about CHF and atrial fib.
[2024-08-05] MEDS: CELEBREX 200 MG PO (20:06)
[2024-08-05] MEDS: ELIQUIS 5 MG PO (20:06)
[2024-08-05] MEDS: COREG 6.25 MG PO (20:06)
[2024-08-05] MEDS: COZAAR 100 MG PO (20:06)
[2024-08-05 21:31] LABS: Troponin I 0.024 ng/ml
[2024-08-06] VITALS (23 sets, daily range): BP systolic 128–176; BP diastolic 91–121; BMI 32.9
[2024-08-06 04:21] LABS: % Basophils 0.5 % (0-2); % Eosinophils 1.3 % (0-6); % Immature Granulocytes 0.4 % (0-0.5); % Lymphocytes 15.1 % (20.5-51.1); % Monocytes 8.8 % (1.7-9.3); % Neutrophils 73.9 % (42.2-75.2); Absolute Eosinophils 0.1 10^3/uL (0-0.7); Absolute Lymphocytes 1.3 10^3/uL (1.2-3.4); Absolute Monocytes 0.7 10^3/uL (0.1-0.6); Absolute Neutrophils 6.1 10^3/uL (1.4-6.5); Hemoglobin 14.4 g/dL (13.0-18.0); Mean Corp Hgb Conc. 33.5 g/dL (33.0-37.0); Mean Corpuscular Hgb 29.8 pg (27.0-31.0); Mean Corpuscular Volume 88.8 fL (80.0-94.0); Mean Platelet Volume 10.9 fL (7.4-10.4); Nucleated Red Blood Cells % 0 % (-); Platelet Count 167 10^3/uL (130-400); Red Blood Cell Count 4.84 10^6/uL (4.70-6.10); Red Cell Dist. Width 15.5 % (11.5-14.5); White Blood Cell Count 8.3 10^3/uL (4.8-10.8)
[2024-08-06 04:39] LABS: Blood Urea Nitrogen 40 mg/dl (9-20); Calcium 8.8 mg/dl (8.4-10.2); Carbon Dioxide 27 mmol/L (22-30); Chloride 104 mmol/L (98-107); Estimated Creatinine Clearance 60 ml/min; Glucose 101 mg/dl (70-99); Magnesium 2.1 mg/dl (1.6-2.3); Potassium 3.5 mmol/L (3.5-5.1); Sodium 143 mmol/L (135-145)
[2024-08-06 04:52] LABS: Troponin I 0.026 ng/ml
[2024-08-06] MEDS: COREG 6.25 MG PO ×2 (08:51→12:30)
[2024-08-06] MEDS: ELIQUIS 5 MG PO ×2 (08:52→21:11)
[2024-08-06] MEDS: LASIX 40 MG IV ×2 (08:52→16:01)
[2024-08-06] MEDS: LOW STRENGTH ASPIRIN 81 MG PO (08:52)
--- NOTE | 2024-08-06 10:24 | PTCARENOTE ---
received patient this am, monitor shows Aflutter, BP remains elevated, lung vickers crackles in bases. at bedside.
--- NOTE | 2024-08-06 11:24 | W.PN.CD ---
Today's Communication / Plan
-
Increase Coreg to 12-1/2 mg p.o. twice daily.
Continue IV Lasix twice daily.
Add back Aldactone 12.5 mg daily. Continue ARB.
Hopefully transition off IV Lasix in the morning.
Impression / Plan
-
Cardiology: Yayo
EP: Senthil
AFIB, Aflutter (atypical): persistent
-rates fast. IV BB is ordered for BP and HR. Monitor telemetry.
-Off IV Labetolol. I will increse his COREG to 12.5mg bid.
-Continue Eliquis for OAC for [id number] score of 6 for HTN, CAD, age, CVA, and CHF. There was an issue at the pharmacy and he briefly wasn't taking Eliquis, but has been compliant of recent.
-he has ablation scheduled with Dr. Ndiaye next month
Oxuhe-iw-jqthwwz HFmEF:
--improving
-EF 45-50%,
-- continue with IV Lasix bid today
-continue intensive monitoring
-on BB(uptitrating) and ARB as OP
-ENTRESTO and SGLT2i are cost prohibitive
-. Aldactone stopped because he didn't want to urinate so much. He is agreeable to adding back
-hopefully can use prn lasix as op to ensure complinace of GDMT. Would need to be compliant with daily weights
-CHF education, limit sodium and fluid.
Severe HTN:
-increasing his COREG now, continue iv lasix and Arb. Adding back spironolactone.
-OP meds include telmisartan and coreg CR- continue and adjust as needed
CAD with hx stenting:
-stable without CP
-on ASA/Eliquis
-statin intolerant per chart
-op stress test is planned.
Recent CVA 05/2024:
-still reports throat sensation ever since. Management per primary.
Subjective:
cough and sob improving, no cp
Physical Exam
Vital Signs/Labs
Vital Signs
Temp Pulse Resp BP Pulse Ox
97.6 F 77 20 168/113 95
08/06/24 07:26 08/06/24 08:52 08/06/24 07:26 08/06/24 08:52 08/06/24 08:30
08/05/24 08/06/24 08/07/24
06:59 06:59 06:59
Actual Weight 99.3 kg
08/06/24 03:56
08/06/24 03:56
Magnesium 2.1 mg/dl (1.6-2.3) 08/06/24 03:56
08/05/24
08:17
Pdz-O-Fkptblefenw Pept 3290
LAB Results
08/05/24 08/05/24 08/05/24
08:17 17:11 20:56
Troponin I 0.025 0.025 0.024
08/06/24
03:56
Troponin I 0.026
Physical Exam
Constitutional: No acute distress
Cardiovascular: Pedal edema is absent, Systolic murmur absent, Diastolic murmur absent and Rhythm/rate is irregular
Respiratory: Respiratory effort normal and Crackles Present (at the bases)
Neuro/Psych: AO x 3
Data Reviewed
-
Date of Service: August 06, 2024
EKG: Other (tele rate control flutter)
[2024-08-06] MEDS: ALDACTONE 12.5 MG PO (12:31)
--- NOTE | 2024-08-06 16:00 | PTOTSP ---
Speech Therapy Evaluation:
Pt's oropharyngeal swallow function appears within functional limits at this time. Pt with no overt s/sx of aspiration on evaluation, however pt reported a history of throat pain following CVA in May of 2024 that has recently improved.
Recommend:
1. IDDSI Level 7 (regular) solids and thin liquids
2. Medications as tolerated
3. General aspiration precautions
4. ST to follow - likely briefly
--- NOTE | 2024-08-06 16:16 | PTCARENOTE ---
took BP 178/115, notified Tari SINHA, took manual BP 150/100, coreg increased as ordered.
[2024-08-06] MEDS: COREG 12.5 MG PO ×2 (16:34→21:25)
--- NOTE | 2024-08-06 17:16 | W.PN.HOSP.TC ---
Today's Communication/Plan
-
Continue IV Lasix
Assessment / Plan
Assessment / Plan
Physical Exam
General: No Apparent Distress, Comfortable and Conversant
HEENT: Normocephalic, Moist mucous membranes and Atraumatic
Respiratory: Rales
Cardiac: S1/S2 and Irregular Rhythm
GI: Soft, Non Tender and Normal Bowel Sounds
Musculoskeletal: No Cyanosis, Edema, Left Lower Extremity and Edema, Right Lower Extremity
Skin: Warm and Dry
Neuro: Awake, Alert and AO x 3
Psych: Calm and Intact Judgment/Insight
Chest X-Ray (as per radiologist's report)
IMPRESSION:
1. Mild pulmonary vascular congestion.
2. Minimal airspace disease within the left lower lobe, which may represent pneumonia, subsegmental atelectasis, or alveolar pulmonary edema.
3. Small left pleural effusion.
Assessment/Plan
Presentation with worsening SOB
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
-IV Lasix given in ER with symptomatic relief
-Continue IV Lasix
-Daily weights and I's and O's
-SOB could also be due to rapid AFib/Flutter
-Patient was supposed to get an ablation in August [address] Ndiaye (billing supervisor)
-Monitor in IVU
-Aldactone 12.5 mg daily added back (previously patient did not want it b/c of too much urination)
-ARB
-Entresto and SGLT2i are cost-prohibitive for the patient
AFib/Flutter with RVR
-Labetalol given in ER with good improvement in HR
-Continue rate control for now with Coreg to 12-1/2 mg p.o. twice daily (increased from home dose)
-Appreciate cardiology
-Monitor in IVU
-Continue Eliquis
Stroke in May 2024
CAD with history of stent
-Continue home medications Aspirin and Eliquis
-Intolerant of statin
-Outpatient stress test
Hypertension
-Hopefully with the increase in beta juan and adding back of Aldactone, BP will be better controlled
-Continue outpatient ARB or equivalent
BPH
-Continue Finasteride
Gout
-Continue Allopurinol
Hypokalemia
-Monitor BMP
Obesity
DVT Prophylaxis: Eliquis and SCDs
Code Status: Full Code
Anticipated Discharge: 24 - 48 hours
Subjective/Interval History
-
Date of Service: August 06, 2024
Patient was seen and examined. His shortness of breath is better today.
Objective Data
-
Vital Signs:
Vital Signs
Temp Pulse Resp BP Pulse Ox
98 F 79 20 173/115 97
08/06/24 16:14 08/06/24 16:34 08/06/24 16:14 08/06/24 16:34 08/06/24 16:14
I&O
08/05/24 08/06/24 08/07/24
06:59 06:59 06:59
Intake Total 320 / 320
Output Total 2650 / 2650 1600 / 1600
Balance -2330 / -2330 -1600 / -1600
[2024-08-06] MEDS: CARDIZEM 10 MG IV (17:24)
[2024-08-06] MEDS: CARDIZEM 125 IV (17:26)
[2024-08-06] MEDS: ZYLOPRIM 300 MG PO (17:30)
[2024-08-06] MEDS: PROSCAR 5 MG PO (17:30)
[2024-08-06] MEDS: COZAAR 100 MG PO (17:32)
--- NOTE | 2024-08-06 17:36 | PTCARENOTE ---
Addendum entered by Eboni Pemberton RN 08/06/24 17:41:
and comiguelar held as ordered.
Original Note:
patient went into a rapid aflutter, HR in the 160's, TT Tari SINHA ordered Cardizem 10mg IV followed by a IV Cardizem drip at 5ml/hr, patient didnot feel HR but was SOB, o2 2LNC placed on patient, at present HR 107, BP 128/90. instructed patient to
stay in bed.
[2024-08-06] MEDS: CELEBREX 200 MG PO (21:21)
[2024-08-07] VITALS (9 sets, daily range): BP systolic 127–169; BP diastolic 89–129; BMI 32.6
[2024-08-07] MEDS: APRESOLINE 5 MG IV (00:18)
--- NOTE | 2024-08-07 00:29 | PTCARENOTE ---
Pt c/o dizziness while lying in bed. Pt stated 'the room was spinning for a few seconds'. BP 163/110 HR in 70s, 98% on RA. WATER REGULATOR AND VALVE REPAIRER made aware Hydralazine IV x 1 dose ordered.
[2024-08-07 04:54] LABS: % Basophils 0.6 % (0-2); % Eosinophils 2.1 % (0-6); % Immature Granulocytes 0.5 % (0-0.5); % Lymphocytes 12.1 % (20.5-51.1); % Neutrophils 74.7 % (42.2-75.2); Absolute Basophils 0.1 10^3/uL (0-0.2); Absolute Eosinophils 0.2 10^3/uL (0-0.7); Absolute Monocytes 0.9 10^3/uL (0.1-0.6); Absolute Neutrophils 6.4 10^3/uL (1.4-6.5); Hematocrit 44.4 % (39.0-52.0); Hemoglobin 14.7 g/dL (13.0-18.0); Mean Corp Hgb Conc. 33.1 g/dL (33.0-37.0); Mean Corpuscular Hgb 28.5 pg (27.0-31.0); Mean Platelet Volume 10.7 fL (7.4-10.4); Nucleated Red Blood Cells % 0 % (-); Platelet Count 195 10^3/uL (130-400); Red Blood Cell Count 5.16 10^6/uL (4.70-6.10); Red Cell Dist. Width 15.5 % (11.5-14.5); White Blood Cell Count 8.5 10^3/uL (4.8-10.8)
[2024-08-07 05:16] LABS: Blood Urea Nitrogen 28 mg/dl (9-20); Carbon Dioxide 28 mmol/L (22-30); Chloride 103 mmol/L (98-107); Estimated Creatinine Clearance 71 ml/min; Glucose 112 mg/dl (70-99); Magnesium 2.1 mg/dl (1.6-2.3); Potassium 3.3 mmol/L (3.5-5.1); Sodium 144 mmol/L (135-145); eGFR > 60.00
[2024-08-07] MEDS: KCL 40 MEQ PO (06:24)
[2024-08-07] MEDS: COREG 25 MG PO ×2 (08:38→19:32)
[2024-08-07] MEDS: LOW STRENGTH ASPIRIN 81 MG PO (08:38)
[2024-08-07] MEDS: ALDACTONE 12.5 MG PO ×2 (08:38→11:20)
[2024-08-07] MEDS: ELIQUIS 5 MG PO ×2 (08:38→19:32)
[2024-08-07] MEDS: LASIX 40 MG IV ×2 (08:39→16:10)
[2024-08-07] MEDS: FLUSH (NSS) 3 FLUSH IV (08:40)
--- NOTE | 2024-08-07 09:07 | PTCARENOTE ---
The patient is aaox3, vital signs are stable. He is 95% on RA. Aflutter is noted on the monitor with hearts rates in the 70's. Cardizem gtt is running at 5mg/hr. He does have orthopnea as he slept in his chair last night. In addition, he does
experience dyspnea on exertion at times and has a non-productive cough. Heart failure education was reviewed with the patient and his .
[2024-08-07] MEDS: REFRESH EYE DROPS (PF) 1 DROPS OPHTH (10:32)
--- NOTE | 2024-08-07 10:37 | W.PN.CD ---
Addendum entered and electronically signed by Ian Littlejohn MD 08/07/24 14:02:
I saw and examined the patient.
The LANDSCAPING SUPERVISOR's note was reviewed and I agree with the note.
Comment: We are controlling rate, improving BP control, and advancing GDMT for HF. He is improving.
Addendum entered and electronically signed by LINH Laughlin 08/07/24 10:59:
Resume losartan- looks like it was held last night when dilt drip started
Original Note:
Today's Communication / Plan
-
Coreg increased today
Stop diltiazem drip
Continue Lasix, increase spironolactone (BP and hypokalemia)
Impression / Plan
-
Cardiology: Yayo
EP: Senthil
AFIB, Aflutter (atypical): persistent
-rates were fast yesterday and he is on diltiazem drip presently, which requires intensive monitoring- will discontinue at this time- discussed with RN
-Continue Eliquis for OAC for [id number] score of 6 for HTN, CAD, age, CVA, and CHF. There was an issue at the pharmacy and he briefly wasn't taking Eliquis, but has been compliant of recent.
-he has ablation scheduled with Dr. Ndiaye next month
Nxmci-wx-telbcem HFmEF:
-improving with IV diuresis, which requires intensive monitoring. He is down 5 lbs this admit. Hypokalemia noted and has been replaced. SOB and cough better, but not back to baseline.
-EF 40-45%
-continue with IV Lasix bid
-on BB (with uptitration) and ARB as OP
-ENTRESTO and SGLT2i are cost prohibitive
-Aldactone stopped because he didn't want to urinate so much. He is okay to be back on now.
-hopefully can use prn lasix as op to ensure compliance of GDMT. Would need to be compliant with daily weights
-CHF education, limit sodium and fluid.
Severe HTN:
-coreg increased this AM, continue iv lasix and Arb. Spironolactone added. Will increase dose.
-OP meds include telmisartan and coreg CR
CAD with hx stenting:
-stable without CP
-on ASA/Eliquis
-statin intolerant per chart
-OP stress test
Recent CVA 05/2024:
-still reports throat sensation ever since. Management per primary.
Subjective:
Had brief room spinning overnight- Dr. Huggins is consulting neurology
Otherwise, feels like he is improving - cough and SOB better, but not yet back to baseline
Physical Exam
Vital Signs/Labs
Vital Signs
Temp Pulse Resp BP Pulse Ox
97.8 F 66 20 165/96 95
08/07/24 07:40 08/07/24 09:00 08/07/24 07:40 08/07/24 07:39 08/07/24 08:40
08/06/24 08/07/24 08/08/24
06:59 06:59 06:59
Actual Weight 99.3 kg 97.1 kg
08/07/24 04:42
08/07/24 04:42
Magnesium 2.1 mg/dl (1.6-2.3) 08/07/24 04:42
08/05/24
08:17
Shk-G-Vjnrproxuop Pept 3290
LAB Results
08/05/24 08/05/24 08/05/24
08:17 17:11 20:56
Troponin I 0.025 0.025 0.024
08/06/24
03:56
Troponin I 0.026
Physical Exam
Constitutional: No acute distress
EENT: Anicteric
Cardiovascular: Rhythm/rate is irregular
Respiratory: Crackles Present (left base)
Neuro/Psych: AO x 3
Data Reviewed
-
Date of Service: August 07, 2024
EKG: Other (coarse AFIB- rate controlled)
Labs: Labs Reviewed by me
--- NOTE | 2024-08-07 10:53 | W.PN.HOSP.TC ---
Today's Communication/Plan
-
Rate was up yesterday, appreciate cardiology titration of Coreg
Appreciate neurology
Assessment / Plan
Assessment / Plan
Physical Exam
General: No Apparent Distress, Comfortable and Conversant
HEENT: Normocephalic, Moist mucous membranes and Atraumatic
Respiratory: Rales
Cardiac: S1/S2 and Irregular Rhythm
GI: Soft, Non Tender and Normal Bowel Sounds
Musculoskeletal: No Cyanosis, Edema, Left Lower Extremity and Edema, Right Lower Extremity
Skin: Warm and Dry
Neuro: Awake, Alert and AO x 3
Psych: Calm and Intact Judgment/Insight
Chest X-Ray (as per radiologist's report)
IMPRESSION:
1. Mild pulmonary vascular congestion.
2. Minimal airspace disease within the left lower lobe, which may represent pneumonia, subsegmental atelectasis, or alveolar pulmonary edema.
3. Small left pleural effusion.
Assessment/Plan
Presentation with worsening SOB
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
-IV Lasix given in ER with symptomatic relief
-Continue IV Lasix
-Daily weights and I's and O's
-SOB could also be due to rapid AFib/Flutter
-Patient was supposed to get an ablation in August [address] Ndiaye (professor of biology)
-Monitor in IVU
-Aldactone added back (previously patient did not want it b/c of too much urination)
-ARB
-Entresto and SGLT2i are cost-prohibitive for the patient
AFib/Flutter with RVR
-Labetalol given in ER with good improvement in HR
-Continue rate control for now with Coreg (increased from home dose)
-Appreciate cardiology
-Monitor in IVU
-Continue Eliquis
Dizziness with Room Spinning Overnight Early AM on 08/07/24
-Neurology consulted, appreciate their evaluation and recommendations: Goal of normotension, Continue current anticoagulation
-Should the patient experience a new or prolonged episode without significant hypertension, check MRI of brain
Stroke in May 2024
CAD with history of stent
-Continue home medications Aspirin and Eliquis
-Intolerant of statin
-Outpatient stress test
Hypertension
-Hopefully with the increase in beta juan and adding back of Aldactone, BP will be better controlled
-Continue outpatient ARB or equivalent
BPH
-Continue Finasteride
Gout
-Continue Allopurinol
Hypokalemia
-Monitor BMP
Obesity
DVT Prophylaxis: Eliquis and SCDs
Code Status: Full Code
Anticipated Discharge: 24 - 48 hours
Subjective/Interval History
-
Date of Service: August 07, 2024
Patient was seen and examined. He reported room spinning and transient weakness, and right eye redness and dryness overnight.
Objective Data
-
Labs:
Laboratory Results
08/07/24
04:42
WBC 8.5
Hgb 14.7
Hct 44.4
Plt Count 195
Sodium 144
Potassium 3.3 L
Chloride 103
Carbon Dioxide 28
BUN 28 H
Creatinine 1.1
Glucose 112 H
Calcium 9.0
Vital Signs:
Vital Signs
Temp Pulse Resp BP Pulse Ox
97.8 F 66 20 165/96 95
08/07/24 07:40 08/07/24 09:00 08/07/24 07:40 08/07/24 07:39 08/07/24 08:40
I&O
08/06/24 08/07/24 08/08/24
06:59 06:59 06:59
Intake Total 320 / 320 120 / 120
Output Total 2650 / 2650 2900 / 2900
Balance -2330 / -2330 -2900 / -2900 120 / 120
--- NOTE | 2024-08-07 10:55 | CON.NEURO ---
Neuro Assessment/Plan
Assessment
Abrupt onset of dizziness, similar to symptoms patient experienced in May 2024 at which time he was found to have a right pontine acute ischemic stroke.
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 There is no evidence of additional focality at this time.
Plan
Goal of normotension
Continue current anticoagulation
Should the patient experience a new or prolonged episode without significant hypertension, would check MRI of brain
We will follow as needed.
Consultation
Order
Date of Consultation: 08/07/24
Requesting Provider: Hospitalist
Reason for Consult: Dizziness
Subjective/Objective
Subjective Data
Date of Service: August 07, 2024
Adapted from the last consultation:
'DATE/TIME OF CONSULTATION: 05/25/2024
Reason for Consultation: stroke symptoms
68-year-old left handed male with a history of right eye blindness since childhood trauma, CAD, hypertension, chronic hearing less left worse than right, hypercholesterolemia and gout who presented to the emergency room for sudden onset of throat
closing up, difficulty speaking and swallowing and dizziness while walking to the bathroom this morning at 3 AM. He also reported mild headache. He stated dizziness seemed positional. He did a home COVID test which was negative but d/t symptoms he
scheduled a virtual visit with primary care, Shelli Britton, who noted right eyelid drooping and slurred speech. His spouse also noted some slurred speech. He denied any new vision changes. He denies loss of sensation or numbness/tingling or
weakness. He denies any chest pain or palpitations. He denies any tinnitus, hearing loss or discharge from the ear. He was found to be in atrial fibrillation on EKG. 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 He admits the he has almost daily mild
headaches. these are generalized and normally do not require any mediation. he did once see a neurologist years ago at [facility] for some right posterior head pain and was prescribed medication. He does not recall what medication he had
taken and this has resolved. Today he reports improvement of all symptoms. He only has mid residual dizziness today.
IMPRESSIONS/RECOMMENDATIONS:
Abrupt onset of dizziness and dysplasia with acute onset atrial fibrillation
Differential diagnosis would include acute ischemic stroke, potentially involving brainstem or cortex. Also would include orthostasis although this is less likely
Would immediately anticoagulate if appropriate from cardiology standpoint. The patient's minimal symptoms currently and likely at worst lacunar sized infarcts intracranially mean low likelihood of conversion to hemorrhagic from ischemic stroke with
immediate anticoagulation instead of antiplatelet agent use
Would discontinue aspirin and clopidogrel if anticoagulation is to be initiated from neurological perspective. If still appropriate from cardiology perspective, would maintain either or both
Would atorvastatin 80 mg daily unless intolerant, at which time rosuvastatin 20 mg may be utilized instead
Suggested right pontine subacute ischemic stroke.
Would provide anticoagulation to replace antiplatelet use.'
Subsequently, patient was found to have an acute pontine lesion as listed above. The patient, reportedly had complete resolution of symptoms.
Patient returned to this hospital with worsening shortness of breath 2 days prior to this consultation. Patient also found to have significant hypertension.
While hospitalized, the patient was seated at ~ 01:00 today with an acute onset room-rocking sensation feeling that the room had moved by 180 degrees, spontaneously resolving. Was unable to contact the nurse via call bassett. No other symptoms at the
time. No prior episodes of a sense of dizziness except for stroke 05/2024.
Objective Data
Vital Signs
Temp Pulse Resp BP Pulse Ox
36.6 C 66 20 165/96 95
08/07/24 07:40 08/07/24 09:00 08/07/24 07:40 08/07/24 07:39 08/07/24 08:40
Lab Results
08/07/24 04:42
08/07/24 04:42
Sodium 144 mmol/L (135-145) 08/07/24 04:42
Potassium 3.3 mmol/L (3.5-5.1) L 08/07/24 04:42
BUN 28 mg/dl (9-20) H 08/07/24 04:42
Glucose 112 mg/dl (70-99) H 08/07/24 04:42
Calcium 9.0 mg/dl (8.4-10.2) 08/07/24 04:42
Ybp-W-Ukbsbgthghv Pept 3290 pg/ml 08/05/24 08:17
Patient Allergies
codeine [Codeine] Allergy (Verified 08/05/24 07:33)
vomiting
colesevelam [From WelChol] Allergy (Verified 08/05/24 07:33)
Unknown
lisinopril Allergy (Verified 08/05/24 07:33)
throat problems
sulfamethoxazole [From Bactrim] Allergy (Verified 08/05/24 07:33)
Unknown
trimethoprim [From Bactrim] Allergy (Verified 08/05/24 07:33)
Unknown
Review of Systems
-
History Source: Patient and Family
All other systems: Reviewed and negative
EENT: Negative Swallowing Difficulty
Respiratory: Negative Trouble Breathing
Cardiac: Negative Chest Pain
Abdomen/GI: Negative Incontinence of Stool
Genitourinary: Negative Incontinence
Musculoskeletal: Negative Back Pain or Neck Pain
Neuro: Dizzy; Negative Headache
Physical Exam
-
General: No Apparent Distress and Appears Stated Age
Eyes: Garnet Conjunctivae and No Ptosis; Negative Able to visualize OU
HEENT: Anicteric and Moist Mucous Membranes
Neck: Full Range of Motion
Respiratory: No Dyspnea
Cardiac: No JVD
GI: Non-distended
Skin: Unremarkable
Extremities: No Clubbing, No Cyanosis and No Edema
Psych: Intact Judgement/Insight
Extended Neurological Exam
Mood & Affect: Mood Unremarkable and Affect Unremarkable
Attention Span & Concentration: Awake, Alert, Interactive and No Difficulty with 2 Step Request
Memory: Unremarkable
Tremor: Hand Tremor Absent and Head Tremor Absent
Speech: Quality Unremarkable and Quantity Unremarkable
Cranial Nerve II: Left Eye: Pupillary Size Unremarkable and Visual Brooke Intact
Cranial Nerve II: Right Eye: Unreactive and Unable to Assess
Cranial Nerves III, IV, : Extraocular Movement: Extraocular Movement Full in all Directions
Cranial Nerve VII: Facial Symmetry: Normal Facial Symmetry
Cranial Nerve VIII: Hearing: Unremarkable Hearing to Normal Conversational Volume
Cranial Nerves IX, X: Palate Movement: Palate Elevation Symmetric
Cranial Nerve XI: Shoulder Shrug: Unremarkable
Cranial Nerve XII: Tongue Protusion: Midline
Muscle Strength, Overall: Full in Upper Extremities
Muscle Bulk & Tone: Bulk Unremarkable and Tone Unremarkable
Pronator Drift: No Drift in Upper Extremities and No Drift in Lower Extremities
Deep Tendon Reflexes: Unremarkable Throughout
Touch Sensation: Unremarkable
Coordination: Xquryt-fyol-veoxzz Testing Unremarkable
Data Reviewed
-
Labs: Report Reviewed
Reviewed with: Physician, Patient and Family
Old Records: Summarized
Medications
-
Active Medications
Generic Name Dose Route Start Last Admin
Trade Name Freq PRN Reason Stop Dose Admin
Allopurinol 300 mg 08/05/24 18:00 08/06/24 17:30
Allopurinol 300 Mg Tablet PO 09/02/24 17:59 300 mg
QPM UMU Administration
Apixaban 5 mg 08/05/24 20:00 08/07/24 08:38
Apixaban (Eliquis) 5 Mg Tablet PO 09/02/24 19:59 5 mg
BID UMU Administration
Artificial Tears 1 drops 08/07/24 10:09 08/07/24 10:32
Artificial Tears Pf (Refresh) 10 Drop Droperette OPHTH 09/04/24 10:08 1 drops
QIDPRN PRN Administration
dry eyes
Aspirin 81 mg 08/06/24 08:00 08/07/24 08:38
Aspirin 81 Mg Chewable Tablet PO 09/03/24 07:59 81 mg
DAILY UMU Administration
Bisacodyl 10 mg 08/05/24 15:48
Bisacodyl 10 Mg Rectal Suppository RECTAL 09/02/24 15:47
[id number] PRN
constipation
Carvedilol 25 mg 08/07/24 08:00 08/07/24 08:38
Carvedilol 12.5 Mg Tablet PO 09/04/24 07:59 25 mg
BID UMU Administration
Celecoxib 200 mg 08/05/24 22:00 08/06/24 21:21
Celecoxib 200 Mg Capsule PO 09/02/24 21:59 200 mg
HS UMU Administration
Finasteride 5 mg 08/05/24 18:00 08/06/24 17:30
Finasteride 5 Mg Tablet PO 09/02/24 17:59 5 mg
QPM UMU Administration
Furosemide 40 mg 08/05/24 16:00 08/07/24 08:39
Furosemide 40 Mg (10 Mg/Ml) 4 Ml Vial IV 09/02/24 15:59 40 mg
BID AT 0800,1600 UMU Administration
Diltiazem HCl 125 mg in 125 mls @ 0 mls/hr 08/06/24 17:15 08/06/24 17:26
Cardizem IV 125 mls
PER PROTOCOL UMU Administration
Protocol
Per Protocol
Losartan Potassium 100 mg 08/05/24 19:30 08/06/24 17:32
Losartan 100 Mg Tablet PO 09/02/24 19:29 100 mg
QPM UMU Administration
Nitroglycerin 0.4 mg 08/05/24 15:48
Nitroglycerin 0.4 Mg Sl Tablet SL 09/02/24 15:47
[id number] PRN
chest pain
Polyethylene Glycol 17 grams 08/05/24 15:48
Polyethylene Glycol Powder 17 Grams Packet PO 09/02/24 15:47
DAILYPRN PRN
constipation
Senna/Docusate Sodium 1 tablet 08/05/24 15:48
Docusate W/Senna (Lyndsey-Colace) Tablet PO 09/02/24 15:47
BIDPRN PRN
constipation
Sodium Chloride 0 flush 08/06/24 17:00 08/07/24 08:40
Sodium Chloride 0.9% (Flush) Syringe IV 09/03/24 16:59 3 flush
PER PROTOCOL UMU Administration
Spironolactone 12.5 mg 08/06/24 12:00 08/07/24 08:38
Spironolactone 12.5 Mg Dose (1/2 Of 25 Mg Tablet) PO 09/03/24 11:59 12.5 mg
DAILY UMU Administration
Home Medications
�Medication �Instructions �Recorded
allopurinol 300 mg tablet 300 mg PO QPM Gout 05/31/21
telmisartan 80 mg tablet 80 mg PO QPM Blood pressure 05/31/21
nitroglycerin 0.4 mg sublingual 0.4 mg sublingual [id number] PRN 06/01/21
tablet chest pain #25 tabs
aspirin 81 mg chewable tablet 81 mg PO DAILY Blood Clot 05/25/24
Prevention/Tx
carvedilol phosphate 20 mg 20 mg PO QPM Blood Pressure 05/25/24
capsule,[id number] multiphase
finasteride 5 mg tablet 5 mg PO QPM Urinary Issue 05/25/24
apixaban 5 mg tablet (Eliquis) 5 mg PO BID Blood Clot 08/05/24
Prevention/Tx
celecoxib 200 mg capsule (Celebrex) 200 mg PO HS pain 08/05/24
Past History
Past History
ED Past Medical History: Arrthythmia (Atrial fibrillation), Asthma, CAD, CHF, CVA, HTN (Stroke May 2024), Hypercholesterolemia, [place] (2020) and Other (Gout, monocular blindness, osteoporosis); Negative NIDDM
ED Past Surgical History: Cardiac (Cardiac stent 2020), Cholecystectomy and Other (Pair eye surgery as a child on the right)
Social History
Tobacco: Non-smoker
Alcohol: Occasional
Drug: None
Personal:
Living: with family
Employment: Employed
Family History
Family History: Other (Reviewed and noncontributory)
--- NOTE | 2024-08-07 11:27 | PTCARENOTE ---
Cardizem gtt discontinued per order.
[2024-08-07] MEDS: FLUSH (NSS) 2 FLUSH IV (16:10)
[2024-08-07] MEDS: ZYLOPRIM 300 MG PO (17:19)
[2024-08-07] MEDS: COZAAR 100 MG PO (17:19)
[2024-08-07] MEDS: PROSCAR 5 MG PO (17:19)
[2024-08-07] MEDS: CELEBREX 200 MG PO (19:37)
[2024-08-08] VITALS (9 sets, daily range): BP systolic 135–156; BP diastolic 94–119; BMI 31.8
[2024-08-08 04:40] LABS: % Basophils 0.5 % (0-2); % Eosinophils 2.9 % (0-6); % Immature Granulocytes 0.4 % (0-0.5); % Monocytes 11.1 % (1.7-9.3); % Neutrophils 70.1 % (42.2-75.2); Absolute Eosinophils 0.2 10^3/uL (0-0.7); Absolute Lymphocytes 1.2 10^3/uL (1.2-3.4); Absolute Monocytes 0.9 10^3/uL (0.1-0.6); Absolute Neutrophils 5.6 10^3/uL (1.4-6.5); Hematocrit 44.6 % (39.0-52.0); Hemoglobin 14.8 g/dL (13.0-18.0); Mean Corp Hgb Conc. 33.2 g/dL (33.0-37.0); Mean Corpuscular Hgb 29.3 pg (27.0-31.0); Mean Corpuscular Volume 88.3 fL (80.0-94.0); Mean Platelet Volume 10.4 fL (7.4-10.4); Nucleated Red Blood Cells % 0 % (-); Platelet Count 190 10^3/uL (130-400); Red Blood Cell Count 5.05 10^6/uL (4.70-6.10); Red Cell Dist. Width 15.3 % (11.5-14.5); White Blood Cell Count 7.9 10^3/uL (4.8-10.8)
[2024-08-08 05:02] LABS: Blood Urea Nitrogen 35 mg/dl (9-20); Calcium 8.9 mg/dl (8.4-10.2); Carbon Dioxide 28 mmol/L (22-30); Chloride 102 mmol/L (98-107); Estimated Creatinine Clearance 60 ml/min; Glucose 96 mg/dl (70-99); Magnesium 2.3 mg/dl (1.6-2.3); Potassium 3.5 mmol/L (3.5-5.1); Sodium 142 mmol/L (135-145)
--- NOTE | 2024-08-08 05:45 | PTCARENOTE ---
Pt Aflatter on monitor with HR in 75. Pt denies any discomfort or pain. independent with mobility. Safety measures in place
[2024-08-08] MEDS: FLUSH (NSS) 2 FLUSH IV ×3 (07:52→16:24)
[2024-08-08] MEDS: COREG 25 MG PO ×2 (07:53→19:32)
[2024-08-08] MEDS: ELIQUIS 5 MG PO ×2 (07:53→19:31)
[2024-08-08] MEDS: ALDACTONE 25 MG PO (07:53)
[2024-08-08] MEDS: LOW STRENGTH ASPIRIN 81 MG PO (07:53)
[2024-08-08] MEDS: LASIX 40 MG IV ×2 (08:56→16:24)
[2024-08-08] MEDS: KCL 40 MEQ PO (08:56)
--- NOTE | 2024-08-08 11:52 | W.PN.CD ---
Today's Communication / Plan
-
We are controlling rate, improving BP control, and advancing GDMT for HF. He is improving.
Move to Valsartan from losartan for better BP control
Anticipate home tomorrow
Plan to move to PO diuretic tomrrow
Impression / Plan
-
Cardiology: Yayo
EP: Senthil
AFIB, Aflutter (atypical): persistent
-rate better controlled on oral meds
-he has ablation scheduled with Dr. Ndiaye next month
Vjaxc-bm-qumqaqh HFmEF:
-Much better: now on MRA/HF BB/Loop diuretic/ARB.
-EF 40-45%
-Move to PO lasix tomorrow
-ENTRESTO and SGLT2i are cost prohibitive
-HF education, limit sodium and fluid.
Severe HTN:
- On several new med, move to valsartan
- If still high in 2 weeks may need to increase Aldactone dose
CAD with hx stenting:
-stable without CP
-on ASA/Eliquis
-statin intolerant per chart
-OP stress test
Recent CVA 05/2024:
-still reports throat sensation ever since. Management per primary.
Subjective:
Feels much better
Physical Exam
Vital Signs/Labs
Vital Signs
Temp Pulse Resp BP Pulse Ox
97.6 F 88 20 154/119 98
08/08/24 07:00 08/08/24 07:04 08/08/24 07:51 08/08/24 07:04 08/08/24 07:55
08/07/24 08/08/24 08/09/24
06:59 06:59 06:59
Actual Weight 97.1 kg 94.7 kg
08/08/24 04:21
08/08/24 04:21
Magnesium 2.3 mg/dl (1.6-2.3) 08/08/24 04:21
08/05/24
08:17
Rhn-H-Hqimedkulaz Pept 3290
LAB Results
08/05/24 08/05/24 08/06/24
17:11 20:56 03:56
Troponin I 0.025 0.024 0.026
Physical Exam
Constitutional: No acute distress
EENT: Anicteric
Cardiovascular: Rhythm/rate is irregular and S1S2 is normal
Respiratory: Respiratory effort normal and Lungs clear to auscul.
GI: Soft and Distention absent
Data Reviewed
-
Date of Service: August 08, 2024
[2024-08-08] MEDS: PROSCAR 5 MG PO (18:03)
[2024-08-08] MEDS: ZYLOPRIM 300 MG PO (18:03)
--- NOTE | 2024-08-08 18:15 | PTCARENOTE ---
The patient has been ambulatory in the halls throughout the shift. His blood pressure remains elevated but stable. He has had no complaints of SOB, dizziness, or discomfort. Afib noted on the monitor.
--- NOTE | 2024-08-08 18:36 | W.PN.HOSP.TC ---
Today's Communication/Plan
-
Continue IV Lasix
Assessment / Plan
Assessment / Plan
Physical Exam
General: No Apparent Distress, Comfortable and Conversant
HEENT: Normocephalic, Moist mucous membranes and Atraumatic
Respiratory: Rales
Cardiac: S1/S2 and Irregular Rhythm
GI: Soft, Non Tender and Normal Bowel Sounds
Musculoskeletal: No Cyanosis, Edema, Left Lower Extremity and Edema, Right Lower Extremity
Skin: Warm and Dry
Neuro: Awake, Alert and AO x 3
Psych: Calm and Intact Judgment/Insight
Chest X-Ray (as per radiologist's report)
IMPRESSION:
1. Mild pulmonary vascular congestion.
2. Minimal airspace disease within the left lower lobe, which may represent pneumonia, subsegmental atelectasis, or alveolar pulmonary edema.
3. Small left pleural effusion.
Assessment/Plan
Presentation with worsening SOB
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
-IV Lasix given in ER with symptomatic relief
-Continue IV Lasix -- plan to transition to PO diuresis tomorrow
-Daily weights and I's and O's
-SOB could also be due to rapid AFib/Flutter
-Patient was supposed to get an ablation in August [address] Ndiaye (signals analyst)
-Monitor in IVU
-Aldactone added back (previously patient did not want it b/c of too much urination)
-ARB: move to Valsartan from losartan for better BP control
-Entresto and SGLT2i are cost-prohibitive for the patient
AFib/Flutter with RVR
-Labetalol given in ER with good improvement in HR
-Continue rate control for now with Coreg (increased from home dose)
-Appreciate cardiology
-Monitor in IVU
-Continue Eliquis
Dizziness with Room Spinning Overnight Early AM on 08/07/24
-Neurology consulted, appreciate their evaluation and recommendations: Goal of normotension, Continue current anticoagulation
-Should the patient experience a new or prolonged episode without significant hypertension, check MRI of brain
Stroke in May 2024
CAD with history of stent
-Continue home medications Aspirin and Eliquis
-Intolerant of statin
-Outpatient stress test
Hypertension
-Continue beta juan and aldactone
-ARB: move to Valsartan from losartan for better BP control
BPH
-Continue Finasteride
Gout
-Continue Allopurinol
Hypokalemia
-Monitor BMP
Obesity
DVT Prophylaxis: Eliquis and SCDs
Code Status: Full Code
Anticipated Discharge: Within 24 hours
Subjective/Interval History
-
Date of Service: August 08, 2024
Patient was seen and examined. He denied any new symptoms or complaints.
Objective Data
-
Vital Signs:
Vital Signs
Temp Pulse Resp BP Pulse Ox
98.3 F 89 20 151/101 97
08/08/24 18:32 08/08/24 15:08 08/08/24 18:32 08/08/24 15:08 08/08/24 18:32
I&O
08/07/24 08/08/24 08/09/24
06:59 06:59 06:59
Intake Total 1120 / 1120 480 / 480
Output Total 2900 / 2900 1900 / 1900 1050 / 1050
Balance -2900 / -2900 -780 / -780 -570 / -570
[2024-08-08] MEDS: DIOVAN 160 MG PO (19:31)
--- NOTE | 2024-08-08 21:03 | PTCARENOTE ---
Received patient at change of shift. Patient awake, alert, and oriented with and daughter bedside. BP 147/105, A-fib w/ BBB 95-105, 97% on room air. Patient denies shortness of breath. Discussed plan of care with patient. Patient verbalized
understanding. Call bassett within reach.
[2024-08-08] MEDS: CELEBREX 200 MG PO (21:45)
[2024-08-09] VITALS (7 sets, daily range): BP systolic 147–155; BP diastolic 111–130; BMI 32.4
[2024-08-09 04:27] LABS: % Basophils 0.6 % (0-2); % Eosinophils 3.2 % (0-6); % Immature Granulocytes 0.3 % (0-0.5); % Lymphocytes 16.5 % (20.5-51.1); % Monocytes 9.1 % (1.7-9.3); % Neutrophils 70.3 % (42.2-75.2); Absolute Basophils 0.1 10^3/uL (0-0.2); Absolute Eosinophils 0.3 10^3/uL (0-0.7); Absolute Lymphocytes 1.4 10^3/uL (1.2-3.4); Absolute Monocytes 0.8 10^3/uL (0.1-0.6); Absolute Neutrophils 6.1 10^3/uL (1.4-6.5); Hematocrit 44.5 % (39.0-52.0); Mean Corp Hgb Conc. 33.7 g/dL (33.0-37.0); Mean Corpuscular Hgb 28.7 pg (27.0-31.0); Mean Corpuscular Volume 85.1 fL (80.0-94.0); Mean Platelet Volume 10.5 fL (7.4-10.4); Nucleated Red Blood Cells % 0 % (-); Platelet Count 200 10^3/uL (130-400); Red Blood Cell Count 5.23 10^6/uL (4.70-6.10); Red Cell Dist. Width 15.5 % (11.5-14.5); White Blood Cell Count 8.7 10^3/uL (4.8-10.8)
[2024-08-09 04:51] LABS: Blood Urea Nitrogen 38 mg/dl (9-20); Calcium 9.2 mg/dl (8.4-10.2); Carbon Dioxide 26 mmol/L (22-30); Chloride 102 mmol/L (98-107); Estimated Creatinine Clearance 51 ml/min; Glucose 109 mg/dl (70-99); Magnesium 2.2 mg/dl (1.6-2.3); Potassium 3.8 mmol/L (3.5-5.1); Sodium 143 mmol/L (135-145); eGFR 49.77
--- NOTE | 2024-08-09 05:30 | PTCARENOTE ---
Patient rested well throughout the night. No c/o chest pain or shortness of breath.
[2024-08-09] MEDS: DIOVAN 160 MG PO (08:07)
[2024-08-09] MEDS: COREG 25 MG PO (08:08)
[2024-08-09] MEDS: ALDACTONE 25 MG PO (08:08)
[2024-08-09] MEDS: LOW STRENGTH ASPIRIN 81 MG PO (08:09)
[2024-08-09] MEDS: ELIQUIS 5 MG PO (08:09)
[2024-08-09] MEDS: LASIX 40 MG IV (08:56)
--- NOTE | 2024-08-09 09:18 | W.PN.HOSP.TC ---
Addendum entered and electronically signed by Gilmer Najera DO 08/09/24 14:28:
Cardiology okay with discharge today. Plan for ablation next week.
Check BMP later this week with primary care doctor.
Original Note:
Today's Communication/Plan
-
Stop IV Lasix
Recheck blood pressure
Await cardiology input
Assessment / Plan
Assessment / Plan
Gen-AAOx3, NAD, obese
HEENT-NC, AT, anicteric, clear oral mm
Neck-supple
CV-reg, no M, +S1/S2
Lungs-clear B/L
Abd-soft, NT, ND
Ext-no edema
Musculoskeletal-no cyanosis, clubbing
Skin-warm and dry
Neuro-grossly non-focal
Psych-calm, cooperative
Acute on Chronic HFmrEF -symptomatic improved with IV Lasix. Was not on fluid and sodium restriction prior to admission, not on diuretics. Discussed the importance.
-SOB could also be due to rapid AFib/Flutter
-Patient was supposed to get an ablation in August [address] Ndiaye (hydrogen power plant manager)
-Monitor in IVU
-Aldactone added back (previously patient did not want it b/c of too much urination)
-ARB: move to Valsartan from losartan for better BP control
-Entresto and SGLT2i are cost-prohibitive for the patient
ERNESTO -suspect diuretic induced, creatinine 1.5 today, was 1.1 two days ago. Hold further IV Lasix. Anticipate discharge on lower dose of Lasix and repeat BMP later this week. Will discuss with cardiology.
AFib/Flutter with RVR
-Labetalol given in ER with good improvement in HR
-Continue rate control for now with Coreg (increased from home dose)
-Appreciate cardiology
-Monitor in IVU
-Continue Eliquis
Dizziness with Room Spinning Overnight Early AM on 08/07/24
-Neurology consulted, appreciate their evaluation and recommendations: Goal of normotension, Continue current anticoagulation
-Should the patient experience a new or prolonged episode without significant hypertension, check MRI of brain
Stroke in May 2024
CAD with history of stent
-Continue home medications Aspirin and Eliquis
-Intolerant of statin
-Outpatient stress test
Essential hypertension with hypertensive urgency -blood pressure elevated again this morning, 154/119. Need to recheck after medications.
-Continue carvedilol and aldactone
-ARB: move to Valsartan from losartan for better BP control
BPH -Continue Finasteride
Gout -Continue Allopurinol
Hypokalemia -resolved.
Obesity due to excess calories
Full code
Dispo -potential discharge later today if stable. Awaiting cardiology input. Close outpatient follow-up.
Anticipated Discharge: Today
Subjective/Interval History
-
Date of Service: August 09, 2024
Patient seen and examined. Overall feels better, less short of breath. Denies dyspnea on exertion.
Objective Data
-
Labs:
Laboratory Results
08/09/24
03:59
WBC 8.7
Hgb 15.0
Hct 44.5
Plt Count 200
Sodium 143
Potassium 3.8
Chloride 102
Carbon Dioxide 26
BUN 38 H
Creatinine 1.5 H
Glucose 109 H
Calcium 9.2
Vital Signs:
Vital Signs
Temp Pulse Resp BP Pulse Ox
98.2 F 92 18 154/119 97
08/09/24 07:46 08/09/24 07:44 08/09/24 07:46 08/09/24 07:44 08/09/24 07:46
I&O
08/08/24 08/09/24 08/10/24
06:59 06:59 06:59
Intake Total 1120 / 1120 480 / 480
Output Total 1900 / 1900 1050 / 1050
Balance -780 / -780 -570 / -570
Review of Systems
-
History Source: Patient
All other systems: Reviewed and negative
--- NOTE | 2024-08-09 09:23 | CM ---
Reviewed chart. Met with Mr. West to review discharge plans.He states he is feeling better. He states prior to admission he resides with his significant other in a two story home with two steps to enter. He states he has a full flight of steps
to get to bedroom/full bathroom. He states he has a powder room on the first floor. He states prior to admission he was independent with ambulation and adls. He states he does not have any DME in the home. He states he has a prescription plan and
uses [facility]. We reviewed [facility] and he is declining [facility] at this time. Medical work-up in progress. The discharge plan is to return home with his significant other when medically stable.
--- NOTE | 2024-08-09 10:34 | PTCARENOTE ---
Rec'd pt at handoff. AOX3. Tele- Afib/flutter. HR 80-100s at rest. Assessment completed as documented; see worklist. Pt has no c/o pain/discomfort at this time. Heart failure education was reviewed with the patient. Verbalizes understanding.
--- NOTE | 2024-08-09 10:46 | W.PN.CD ---
Addendum entered and electronically signed by Devora Ndiaye MD 08/09/24 14:16:
Patient is seen and evaluated personally. I agree with the assessment, notes and plan of care as documented below
Briefly, 69-year-old gentleman with atypical atrial flutter and persistent atrial fibrillation was hospitalized with acute on chronic heart failure likely due to atrial fibrillation. He is started on guideline directed medical therapy. LVEF is
40%. I would allow him to have somewhat borderline elevated blood pressure given his A-fib. With increasing Coreg and addition of spironolactone, blood pressure might get better over the next few days. Our plan is to discharge him home with a
plan to have an early ablation next week.
Continue Eliquis without any disruption.
Original Note:
Today's Communication / Plan
-
CHF: IV lasix stopped after this AM's dose due to increase in creatinine- needs close monitoring
AFIB: rates currently controlled on Coreg 12.5 mg PO BID- continue and monitor telemetry. Plan is for ablation in future and Dr. Ndiaye to see patient today.
HTN: BP still elevated- multiple med changes this admit- transition from losartan/telmisartan to valsartan (160 mg PO BID), adding spironolactone 25 mg PO daily, and increasing Coreg dosing. Will see how BP settles out with all of these changes- may
need further adjustments.
Impression / Plan
-
Cardiology: Yayo
EP: Senthil
AFIB, Aflutter (atypical): persistent
-rate-controlled - continue Coreg 25 mg PO BID
-he has ablation scheduled with Dr. Ndiaye next month- Dr. Ndiaye to see today
Yrqpq-pl-itdpamo HFmEF:
-Much better: now on MRA/HF BB/Loop diuretic/ARB.
-EF 40-45%
-Lasix stopped after dose this AM as creatinine is rising- needs close monitoring
-ENTRESTO and SGLT2i are cost prohibitive
-HF education, limit sodium and fluid.
Severe HTN:
- multiple medication adjustments made this admit- losartan/telmisartan changed to valsartan (160 mg PO BID), coreg dosing increased, Aldactone added and increased. BP still elevated, but with multiple med changes- monitor to see where BP settles
out.
- If still high in 2 weeks may need to increase Aldactone dose (if creat/K+ stable)
CAD with hx stenting:
-stable without CP
-on ASA/Eliquis
-statin intolerant per chart
-OP stress test
Recent CVA 05/2024:
-still reports throat sensation ever since. Management per primary.
Subjective:
Feeling improved overall
Physical Exam
Vital Signs/Labs
Vital Signs
Temp Pulse Resp BP Pulse Ox
98.2 F 102 18 147/116 97
08/09/24 07:46 08/09/24 10:00 08/09/24 07:46 08/09/24 09:43 08/09/24 09:00
08/08/24 08/09/24 08/10/24
06:59 06:59 06:59
Actual Weight 94.7 kg 96.5 kg
08/09/24 03:59
08/09/24 03:59
Magnesium 2.2 mg/dl (1.6-2.3) 08/09/24 03:59
08/05/24
08:17
Pzt-O-Wkcfxufshse Pept 3290
Physical Exam
Constitutional: No acute distress
EENT: Anicteric
Cardiovascular: Rhythm/rate is irregular
Respiratory: Respiratory effort normal and Lungs clear to auscul.
Neuro/Psych: AO x 3
Data Reviewed
-
Date of Service: August 09, 2024
EKG: Other (tele AFIB)
Labs: Labs Reviewed by me
--- NOTE | 2024-08-09 14:28 | W.DS.TRANS ---
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
-
Discharge Instructions:
Sleep Apnea Risk High
Discharge Diagnosis/Procedures Acute heart failure exacerbation, rapid atrial
flutter
Diet Restrict fluids to 64 oz,2 Gram Sodium
Activity As tolerated
Driving Restrictions As prior to admission
Bathing Restrictions None
Blood Work BMP in 3 days with your primary care doctor
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
Stand-Alone Forms:
Changes to Home Medications: Yes
Discharge Medications:
DC Medications w/original date entered in [employer]
allopurinol 300 mg tablet 300 mg PO QPM Gout 05/31/21
nitroglycerin 0.4 mg sublingual tablet 0.4 mg sublingual [id number] PRN chest pain #25 tabs 06/01/21
aspirin 81 mg chewable tablet 81 mg PO DAILY Blood Clot Prevention/Tx 05/25/24
finasteride 5 mg tablet 5 mg PO QPM Urinary Issue 05/25/24
apixaban 5 mg tablet (Eliquis) 5 mg PO BID Blood Clot Prevention/Tx 08/05/24
celecoxib 200 mg capsule (Celebrex) 200 mg PO HS pain 08/05/24
carvedilol 25 mg tablet (Coreg) 25 mg PO BID #60 tabs 08/09/24
furosemide 40 mg tablet 40 mg PO DAILY PRN weight gain over 3 pounds in 24 hours #30 tabs 08/09/24
spironolactone 25 mg tablet 25 mg PO DAILY #30 tabs 08/09/24
valsartan 160 mg tablet 160 mg PO BID #60 tabs 08/09/24
Home Medication Changes
Stop telmisartan.
Pending Results: No
[2024-08-09] MEDS: FLUAD (65 yr+) 2024-2025 FORMULA 0.5 ML IM (14:40)
--- NOTE | 2024-08-09 16:04 | PTCARENOTE ---
IV and tele removed. Discharge instructions reviewed w/ pt and spouse. Verbalizes understanding. Belongings packed and sent w/ pt. Escorted via wheelchair and staff assist. Discharged to home.
== END 2024-08-09 16:21 | disposition home or self-care (01) | DRG 291 ==
LOC: IVU 14:11
PROVIDERS: ADMITTING PHYSICIAN Hospitalist; ATTENDING PHYSICIAN Hospitalist; CONSULT PHYSICIAN Internal Medicine Cardiovascular Disease; CONSULT PHYSICIAN Psychiatry & Neurology Neurology; EMERGENCY PHYSICIAN Emergency Medicine; FAMILY PHYSICIAN Physician Assistant Medical
DX: I11.0 Hypertensive heart disease with heart failure (principal); I50.23 Acute on chronic systolic (congestive) heart failure; I48.92 Unspecified atrial flutter; J91.8 Pleural effusion in other conditions classified elsewhere; N17.8 Other acute kidney failure; I77.810 Thoracic aortic ectasia; J45.909 Unspecified asthma, uncomplicated; I16.0 Hypertensive urgency; E66.09 Other obesity due to excess calories; Z68.33 Body mass index [BMI] 33.0-33.9, adult; R13.10 Dysphagia, unspecified; T50.2X5A Adverse effect of carbonic-anhydrase inhibitors, benzothiadiazides and other diuretics, initial encounter; I25.10 Atherosclerotic heart disease of native coronary artery without angina pectoris; Z95.5 Presence of coronary angioplasty implant and graft; I25.2 Old myocardial infarction; I48.91 Unspecified atrial fibrillation; M10.9 Gout, unspecified; M81.0 Age-related osteoporosis without current pathological fracture; E78.00 Pure hypercholesterolemia, unspecified; N40.0 Benign prostatic hyperplasia without lower urinary tract symptoms; R73.03 Prediabetes; H54.61 Unqualified visual loss, right eye, normal vision left eye; E87.6 Hypokalemia; G47.9 Sleep disorder, unspecified; R47.81 Slurred speech; H02.401 Unspecified ptosis of right eyelid; Z91.199 Patient's noncompliance with other medical treatment and regimen due to unspecified reason; Z79.01 Long term (current) use of anticoagulants; Z79.82 Long term (current) use of aspirin; Z79.899 Other long term (current) drug therapy; Z82.49 Family history of ischemic heart disease and other diseases of the circulatory system; Z88.1 Allergy status to other antibiotic agents; Z88.2 Allergy status to sulfonamides; Z88.5 Allergy status to narcotic agent; Z88.8 Allergy status to other drugs, medicaments and biological substances; Z90.49 Acquired absence of other specified parts of digestive tract
CPT/HCPCS: 71046; 80048; 80053; 83735; 83880; 84484; 85025; 90662; 92610; 93005; 96374; 96375; 99291; G0008

== ENCOUNTER → 2024-08-13 06:02 | Outpatient (REF) | payer BC, MEDICARE, SELFPAY ==
[2024-08-13 09:42] LABS: Blood Urea Nitrogen 32 mg/dl (9-20); Calcium 9.2 mg/dl (8.4-10.2); Carbon Dioxide 27 mmol/L (22-30); Chloride 103 mmol/L (98-107); Glucose 109 mg/dl (70-99); Potassium 4.4 mmol/L (3.5-5.1); Sodium 142 mmol/L (135-145)
== END ==
LOC: HWLAB 06:02
PROVIDERS: ATTENDING PHYSICIAN Physician Assistant Medical
DX: I10 Essential (primary) hypertension (principal)
CPT/HCPCS: 36415; 80048

== ENCOUNTER 2024-08-16 08:06 | Day surgery (SDC) | payer BC, MEDICARE, SELFPAY ==
[2024-08-16] VITALS (16 sets, daily range): BP systolic 109–174; BP diastolic 71–148; BMI 33.8
[2024-08-16 13:05] LABS: ACT-LR - POC 368 Seconds (116-155)
[2024-08-16 13:23] LABS: ACT-LR - POC 350 Seconds (116-155)
[2024-08-16 13:55] LABS: ACT-LR - POC 356 Seconds (116-155)
[2024-08-16 14:45] LABS: ACT-LR - POC 274 Seconds (116-155)
--- NOTE | 2024-08-16 15:20 | ITS.CL.ABL ---
[employer] - Ablation
Ablation
Procedure Report:
AFIB ablation:
Mr. West is a very pleasant 69 yr old gentleman with symptomatic persistent AF, atrial flutter, HFmEF with LVEF 40%, and hypertension presented today to the EP lab for atrial fibrillation/ flutter ablation.
Date of the Procedure:
08/16/2024
Indications:
Persistent atrial fibrillation / Flutter
Pre-Operative Diagnosis:
Persistent atrial fibrillation / Flutter
Post-Operative Diagnosis:
Persistent atrial fibrillation / Flutter / Atrial tachycardia
Procedure Performed:
Atrial fibrillation ablation with Pulsed-Field approach for pulmonary vein isolation
Roof line formation for atypical atrial flutter
Posterior wall isolation for persistent atrial fibrillation
Atrial flutter mitral valve and anterior mitral line formation.
Left atrial Septal micro reentry flutter ablation
Focal Atrial tachycardia from anterior left atrial wall
Typical atrial flutter with cavo tricuspid isthmus ablation
Performing Physician:
Devora Ndiaye MD
Assistants:
EP staff
Anesthesia:
See anesthesia records
Detailed Description of the Procedure:
Written informed consent was obtained from the patient after a full explanation of the risks and benefits of the procedure including the risks of sedation and anesthesia.
The patient was brought to the electrophysiology laboratory in stable condition in fasting state. Continuous electrocardiographic and hemodynamic monitoring was initiated.
The initial rhythm was atrial flutter.
The procedure site was meticulously prepared with surgical scrub and allowed to dry with no pooling. Sterile draping was applied to cover the procedure site. The image intensifier was draped with sterile bag and positioned over the patient. After
infusion of local anesthetic, vascular access was obtained under ultrasound guidance and sheaths were placed over guide wire as detailed below.
Sheath and Catheter Placement:
The following catheters / sheaths were placed
Sheaths:
��������� 15Fr steerable sheath (FlexCath Cross�, [employer]) in right femoral vein in right femoral vein
��������� 9Fr in right femoral vein
��������� 7Fr in right femoral vein
Catheters:
��������� SAMANTA HD Grid mapping catheter � at locations of RA, LA
��������� PulseSelect� PFA catheter
��������� ICE catheter -AcuNav - at locations of RA, SVC, and RV.
��������� Decapolar Bard catheter in RA and CS
Intracardiac ECHO:
An 8-Occitan AcuNav intracardiac ECHO (ICE) probe was advanced through the 9-Occitan sheath in the right femoral vein into the right atrium under fluoroscopic and ICE ultrasound image guidance and a baseline ECHO study was performed. The left atrial
size was dilated. There was moderate tricuspid regurgitation. The aortic valve was grossly normal. There was moderate to severely reduced left ventricular systolic functions. There is trace pericardial effusion. All the four veins were identified
and has flow identified. There was spontaneous contrast seen in the JARON.
During the procedure, ICE was used for monitoring of complications, guidance of trans-septal puncture, monitor the catheter position and tracking ablation lesions. No change in the pericardial space noted throughout the procedure.
Ablation #1: LA septal atrial flutter:
Atrial flutter CL 210 msec. The flutter was concentric on CS activation and was entrained. It was out from RA and distal CS. The RA was mapped and the earliest was at the atrial septum indicating coming from the LA.
Trans-septal Puncture:
Heparin was initiated and infused to maintain appropriate ACT. A J-tipped guidewire was advanced through the 8-Occitan sheath in the right femoral vein into the superior vena cava under fluoroscopic and ICE guidance. The 8-Occitan sheath was exchanged
for a FlexCath Cross sheath which was advanced into the superior vena cava. An [employer] transseptal access system was utilized to perform the trans-septal puncture. The apparatus was withdrawn until it was in contact with the fossa ovalis. The
position was adjusted based on fluoroscopy and ultrasound images from ICE. Under fluoroscopic, hemodynamic and ICE ultrasound guidance, left atrium was cannulated by advancing the needle. Once atrial septum was cannulated, the needle was pulled back
and a guide wire was advanced through the needle into the left atrium. The guide wire was advanced into the left superior pulmonary vein. Both the sheath and the dilator was advanced into the left atrium. The dilator with the needle was withdrawn.
Blood was aspirated from the FlexCath cross sheath and arterial blood confirmed. The sheath was flushed. Saline injection noted into the left atrium on ICE. The mapping catheter was advanced in the sheath into the left pulmonary vein. Left atrial
pressure was measured.
3D Electroanatomic Mapping:
Using the HD Grid catheter advanced through sheath into the left atrium, an electroanatomic map (EAM) of the left atrium was created using [employer] mapping system. The map was used for localization of catheter position and tacking of ablation lesions.
The EAM of the left atrium showed 4 pulmonary veins with two left sided and two right sided veins electrically connected to the body the LA. There was extensive areas of low voltage noted in the left atrium with minimal electrical activity in the
posterior wall indicative of scar. �
The LA was dilated in size.
Following the EAM, preparation were made for ablation.
Ablation:
Ablation # 1: Pulmonary vein Isolation:
Glycopyrrolate 0.2 mg was given prior to the placement of ablation. Using PulseSelect� pulsed field ablation system, pulmonary vein isolation was achieved. First the ablation catheter was placed in the LIPV and ostial ablation lesions were performed
in a counter clock boyle approach all around the PV ostium circumferentially. Then the catheter was placed on the antral location and multiple ablation lesions were placed circumferentially on the antrum of the vein.
In the similar fashion, the LSPV were isolated.
Then the catheter was moved to right sided veins. The ostial and antral ablations were placed as noted above to the RSPV and RIPV.
Ablation # 2: Atypical atrial flutter ablation:
Given patient hx of atypical atrial flutter and EAM showed there was a clear channel of electrical activity left in the posterior wall with multiple CFAE and AF areas on the roof significant scar noted on the roof with some residual electrical
activity noted. This increased the risk of atrial flutter and decision was made to create a roof line to block a slow conduction.
Using PulseSelect� pulsed field ablation system, a set of pulsefield ablations were placed on the roof line connecting the left superior pulmonary vein ablation lesions to the right superior pulmonary vein lesions rings.
Ablation # 3: Posterior wall isolation:
Using the pulsed field ablation catheter, the catheter was placed on the posterior wall and moved around the posterior wall to have adequate contact and ablations were placed isolating the posterior wall.
Ablation # 4: Septal wall micro reentry atrial flutter.
Tachycardia was mapped and was noted to have micro reentry at the inferior septum of left atrium. �The fractionated signal from the tachycardia was involving the full cycle length around the curve of the septal wall.
Using pulseselect ablation catheter, the inferoseptal area of the left atrium was ablated. The tachycardia terminated into a different cycle length of 240 ms. The CS activation was also different.
Ablation # 5: Anterior wall atrial tachycardia ablation.
The new tachycardia was again mapped and was noted to be coming from the anterior wall of the left atrium. Using the pulsed field ablation catheter, the catheter was placed on the anterior wall and the fractionated signals corresponding to the
atrial tachycardia identified. The ablation was performed at the area of the interest.
Ablation #6: Focal atrial tachycardia ablation
Patient was placed into normal sinus rhythm. Patient was noted to have sinus bradycardia and CS was paced. The left atrium was mapped in sinus rhythm and while moving catheter in the left atrium, patient went back into another atrial tachycardia.
This atrial tachycardia was mapped again and was noted to be coming from the base of the left atrial appendage with highly fractionated signals noted.
Ablation was performed at the base of the left atrial appendage and connected it to the scar on the left anterior wall
Ablation #7 mitral flutter ablation.
Tachycardia degenerated into mitral flutter which was 320 ms. The tachycardia was mapped and entrained. Cycle length was in the distal CS but was out from the proximal CS with significant scar noted at the proximal CS area. Tachycardia was mapped
and was noted to be perimitral flutter with involving the anterior wall.
Ablations were placed on the anterior wall connecting the previously formed septal wall lesions to the mitral annulus.
Tachycardia was converted into sinus rhythm.
Ablation #8: Typical atrial flutter with cavotricuspid isthmus ablation
The left atrium was again attempting to map but went into another arrhythmia/tachycardia cycle length of 340 ms.
The left atrium was mapped and was out of the tachycardia. Decision was made to map the right atrium. �The right atrium was mapped and was noted to have typical atrial flutter revolving the tricuspid valve.
Using the ablation catheter, the pulsed field ablation was used to create ablation lesions from tricuspid annulus to the IVC. The tachycardia slowed and terminated into normal sinus rhythm. CS was paced and additional ablation lesions were created
for block at the CTI.� With proximal CS pacing, right atrium was mapped and was noted to have block at the CTI.
Post ablation Electroanatomic mapping:
Once ablation was completed, the EAM of the LA was done again in sinus rhythm with excellent demarcation of LA myocardium and isolated antral tissue.
EPS and Confirmation of the PVI and bidirectional block:
Following achievement of entrance block at the pulmonary veins, pacing from the HD catheter in each of the four veins at 10 milliamps for 2 milliseconds showed entrance and exit block. All PVI were rechecked at the end of the case and remained
isolated with dissociated and local capture with pacing. Entrance and exit block were demonstrated in all veins.
Summary of ablation applied:
LSPV: 24 lesions (including ablation of JARON base; RSPV: 14 lesions -including anterior focal AT
LIPV: 11 lesions; �������������� ����������������������������������������������� RIPV: 20 lesions-including septal and mitral flutter
PW: 15 lesions. Anterior left atrial ablation: 21
Total left atrial ablations: 105 lesions.
Right atrial ablations
CTI line: 9 lesion
Procedure End
ICE study was done again that showed no epicardial accumulation. No complications noted.
Following the completion of the EP study, catheters were removed. Protamine 40 mg was given at the end of the procedure and ACT was checked repeatedly. The sheaths were removed and hemostasis achieved with VASCADE and manual compression after
acceptable ACT is achieved.
Left atrial Pressure:
Pre-Procedure: Mean LA pressure was 4mmHg
Post-Procedure: Mean LA pressure was 7mmHg
Post-Procedure: Mean LR pressure was 4mmHg
Estimated Blood loss:
<10 cc
Specimens Removed:
None.
Implants / Devices:
None
Urine output:
None
Packs / Drains/ Tubes:
None
Instrument / Sponge Count Correct:
Yes
Complications of the Procedure:
None
Condition of Patient at Time of Transfer:
Hemodynamically stable with no neurological or vascular compromise.
Summary:
Successful atrial fibrillation ablation with Pulsed Field approach for pulmonary vein isolation, Roof line formation for atypical atrial flutter, Posterior wall isolation for persistent atrial fibrillation, Atrial tachycardia from anterior left
atrial wall, atrial flutter mitral valve and anterior mitral line formation, Left atrial Septal micro reentry flutter ablation, Focal Atrial tachycardia from anterior left atrial wall, Typical atrial flutter with cavo tricuspid isthmus ablation
Figures from the Procedure:
Figure 1: The electroanatomic mapping (EAM) of the left atrium with bipolar voltage (purple indicates normal electrical activity with santiago as no myocardial muscle electric activity indicating a line of block or scar.
[2024-08-16] MEDS: DIOVAN 160 MG PO (16:24)
[2024-08-16] MEDS: COREG 25 MG PO (16:24)
[2024-08-16] MEDS: ANESTHETIC LOZENGE 1 LOZENGE PO ×2 (16:28→21:53)
--- NOTE | 2024-08-16 16:30 | PTCARENOTE ---
Pt received from [facility] @ 1630 from [facility] Liz aflutter ablation. Pt aaox4, bedrest till 1700, RFA Vasecade closure. No s/s of bleeding/hematoma +2 DP pulse. 2Lnc, VSS, LFA20G IV, DTV, Bedrest till 1700. All personal belonging return to the pt in
the room.
[2024-08-16] MEDS: CELEBREX 200 MG PO (17:49)
[2024-08-16] MEDS: ZYLOPRIM 300 MG PO (17:50)
[2024-08-16] MEDS: PROSCAR 5 MG PO (17:50)
[2024-08-16] MEDS: ELIQUIS 5 MG PO (19:56)
[2024-08-16] MEDS: PACERONE 200 MG PO (19:56)
[2024-08-17] MEDS: DIOVAN 160 MG PO ×2 (00:07→08:48)
[2024-08-17 00:47] VITALS: BP 165/119
[2024-08-17] MEDS: LOPRESSOR 5 MG IV (01:31)
[2024-08-17 01:40] VITALS: BP 153/113
[2024-08-17] MEDS: CORDARONE 103 MG IV (02:35)
[2024-08-17 02:52] VITALS: BP 149/114
[2024-08-17] MEDS: ANESTHETIC LOZENGE 1 LOZENGE PO (03:05)
[2024-08-17 03:07] VITALS: BMI 33.9
[2024-08-17 03:12] LABS: Hemoglobin 14.3 g/dL (13.0-18.0); Mean Corpuscular Hgb 28.8 pg (27.0-31.0); Mean Corpuscular Volume 84.7 fL (80.0-94.0); Mean Platelet Volume 10.9 fL (7.4-10.4); Platelet Count 148 10^3/uL (130-400); Red Blood Cell Count 4.96 10^6/uL (4.70-6.10); Red Cell Dist. Width 15.2 % (11.5-14.5); White Blood Cell Count 10.1 10^3/uL (4.8-10.8)
--- NOTE | 2024-08-17 03:16 | PTCARENOTE ---
Pt bp 165/119 with HR 130. Pt c/o mild MOORE. Denies palpitations or dizziness. CVPA made aware. IV Lopressor 5ml x 1 given without positive effect. HR cont in 130s. Amio bolus ordered. post Amio bolus HR 104 BP 149/114
[2024-08-17 03:41] LABS: Blood Urea Nitrogen 37 mg/dl (9-20); Carbon Dioxide 23 mmol/L (22-30); Chloride 104 mmol/L (98-107); Estimated Creatinine Clearance 64 ml/min; Glucose 151 mg/dl (70-99); Potassium 4.7 mmol/L (3.5-5.1); Sodium 138 mmol/L (135-145); eGFR > 60.00
[2024-08-17 08:08] VITALS: BP 155/119
[2024-08-17 08:10] VITALS: BP 159/118
--- NOTE | 2024-08-17 08:30 | PTCARENOTE ---
Assumed care of pt from prev nsg shift; Pt AAOx3 w/no CP or SOB. Pt w/elevated HR in the 100's & BP elevated at 159/118. aware. Pt's PO AM meds administered as ordered. Pt w/ R groin access site w/dressing C/D/I w/no signs or symptoms of bleeding
or hematoma. Plan of care ongoing.
[2024-08-17] MEDS: ALDACTONE 25 MG PO (08:48)
[2024-08-17] MEDS: PACERONE 200 MG PO (08:48)
[2024-08-17] MEDS: LOW STRENGTH ASPIRIN 81 MG PO (08:48)
[2024-08-17] MEDS: COREG 25 MG PO (08:48)
[2024-08-17] MEDS: ELIQUIS 5 MG PO (08:48)
--- NOTE | 2024-08-17 09:26 | W.PN.CARDCBS ---
Today's Communication / Plan
-
continue amiodarone BID
monitor BP at home- daily in AM and keep log- bring to cardiology office at followup
home today
Impression / Plan
-
PCP: Shelli Britton NP
CDY: Alysha Phillip NP (with Dr. Stout @[facility])
69 y/o, presents with new AFib/Flutter with cardiomyopathy in the setting of CVA in May 2024. Started on eliquis but has had some medicine non compliance due to side effects and cost, and was hospitalized with acute on chronic heart failure as
well as AF w/RVR in July 2024. Currently now stable, s/p PFA. Was started on amiodarone 200mg BID post procedure. Some Atrial tach overnight 130s, managed with IV lopressor and IV amiodarone bolus. Rates now ST 100s, asymptomatic but with BPs
150-160s/90-110s.
IMPRESSION:
AFib/AFlutter
S/P PFA/flutter/ATach ablation, 08/16/24
CVA (05/2024)
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
CAD w/prior stent (2020)
HTN
HLD
Pre-DM
Ascending aorta dilation
Right eye blindness
PLAN:
Tele- ST 100s, AT overnight w/rates 130s
Right groin site stable
Resume eliquis
started amiodarone 200mg BID- first dose last evening prior to AT
IV amiodarone and lopressor for tachycardia overnight with some relief, rates still low 100s
BP elevated 150-160s/90-110s
Continue carvedilol, valsartan- will monitor BP at home- expect that BP will improve after amiodarone fully on board
Continue heart failure management with daily weights/prn lasix
Followup with CLIENT DEVELOPMENT CONSULTANT in 2 weeks for BP and post procedure followup
Spent time with pt/ and all questions answered
home today
Progress Note - Conservation Planner
Subjective
Date of Service: August 17, 2024
Denies cp/palps/dyspnea
oob ambulating
groin site without pain
Objective
Labs:
08/17/24 03:00
08/17/24 03:00
Labs
Hgb 14.3 g/dL (13.0-18.0) 08/17/24 03:00
Hct 42.0 % (39.0-52.0) 08/17/24 03:00
Plt Count 148 10^3/uL (130-400) 08/17/24 03:00
Sodium 138 mmol/L (135-145) 08/17/24 03:00
Potassium 4.7 mmol/L (3.5-5.1) 08/17/24 03:00
BUN 37 mg/dl (9-20) H 08/17/24 03:00
Creatinine 1.2 mg/dL (0.7-1.3) 08/17/24 03:00
Glucose 151 mg/dl (70-99) H 08/17/24 03:00
Vital Signs and I&O:
Vital Signs
Temp Pulse Resp BP Pulse Ox
97.8 F 118 18 159/118 96
08/17/24 08:13 08/17/24 08:15 08/17/24 08:13 08/17/24 08:10 08/17/24 08:13
Vital Signs
Temp Pulse Resp BP Pulse Ox
97.8 F 118 18 159/118 96
08/17/24 08:13 08/17/24 08:15 08/17/24 08:13 08/17/24 08:10 08/17/24 08:13
Intake & Output
08/15/24 08/16/24 08/17/24 08/18/24
06:59 06:59 06:59 06:59
Intake Total 470 / 470
Output Total 300 / 300
Balance 170 / 170
Physical Exam
Physical Exam
AAOx3, MAEE 5/5
RRR S1 S2 tachycardic, no murmurs
CTA bilat, non labored
soft abd, + bs
right groin site without ht/bleeding
bilat extremities w/palpable distal pulses, no edema
--- NOTE | 2024-08-17 09:50 | W.PN.CD ---
Today's Communication / Plan
-
- s/p AF ablation
- Stable for discharge
Impression / Plan
-
PCP: Shelli Britton NP
CDY: Alysha Phillip NP (with Dr. Stout @[facility])
69 y/o, presents with new AFib/Flutter with cardiomyopathy in the setting of CVA in May 2024. Started on eliquis but has had some medicine non compliance due to side effects and cost, and was hospitalized with acute on chronic heart failure in
July 2024. Currently now stable, s/p PFA. Was started on amiodarone 200mg BID post procedure. Some Atrial tach overnight 130s, managed with IV lopressor and IV amiodarone bolus. Rates now ST 100s, asymptomatic but with BPs 150-160s/90-110s.
IMPRESSION:
AFib/AFlutter
S/P PFA
Had over 2 hours of AT/AFL overnight.
Now in sinus
Continue Amiodarone
Plan for 3-6 months of Amio
Complex bi atrial scarring noted.
Multiple arrhythmia ablated as below
High risk of AT and atrial flutter due to wide spread scarring in both chambers
Persistent atrial fibrillation / Flutter / Atrial tachycardia
Procedure Performed:
Atrial fibrillation ablation with Pulsed-Field approach for pulmonary vein isolation
Roof line formation for atypical atrial flutter
Posterior wall isolation for persistent atrial fibrillation
Atrial flutter mitral valve and anterior mitral line formation.
Left atrial Septal micro reentry flutter ablation
Focal Atrial tachycardia from anterior left atrial wall
Typical atrial flutter with cavo tricuspid isthmus ablation
Hypertension:
Continue Coreg, Valsartan and Aldactone
Lasix prn
Possible addition of Farxiga
Will repeat ECHO in 3 months and possibly switch to Entresto
Physical Exam
Vital Signs/Labs
Vital Signs
Temp Pulse Resp BP Pulse Ox
97.8 F 118 18 159/118 96
08/17/24 08:13 08/17/24 08:15 08/17/24 08:13 08/17/24 08:10 08/17/24 08:13
08/16/24 08/17/24 08/18/24
06:59 06:59 06:59
Actual Weight 98 kg
08/17/24 03:00
08/17/24 03:00
Physical Exam
Constitutional: No acute distress and Comfortable
EENT: Anicteric and Moist mucous membranes
Cardiovascular: Rhythm & rate is regular, Pedal edema is absent and JVD pressure is normal
Respiratory: Respiratory effort normal, Lungs clear to auscul., Wheeze Absent and Crackles Absent
GI: Soft, Non tender and Normal bowel sounds
Neuro/Psych: Alert, Oriented and AO x 3
Other: Cath Site
Data Reviewed
-
Date of Service: August 17, 2024
Medical Decision Making: Reviewed Test Results and Independent Historian Assessment
EKG: Tracing Personally Visualized and interpreted
Echo: Report Reviewed by me
Labs: Labs Reviewed by me
Old Records: Reviewed
--- NOTE | 2024-08-17 10:27 | W.DS.TRANS ---
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
-
Discharge Instructions:
Discharge Diagnosis/Procedures AFib, s/p ablation
Diet Low Cholesterol
Driving Restrictions No driving for 24 hours
Instructions:
Stand-Alone Forms: DC Instructions- Cath/EP Lab
Return to Work
Changes to Home Medications: Yes
Discharge Medications:
DC Medications w/original date entered in [employer]
allopurinol 300 mg tablet 300 mg PO QPM Gout 05/31/21
nitroglycerin 0.4 mg sublingual tablet 0.4 mg sublingual [id number] PRN chest pain #25 tabs 06/01/21
aspirin 81 mg chewable tablet 81 mg PO DAILY Blood Clot Prevention/Tx 05/25/24
finasteride 5 mg tablet 5 mg PO QPM Urinary Issue 05/25/24
apixaban 5 mg tablet (Eliquis) 5 mg PO BID Blood Clot Prevention/Tx 08/05/24
celecoxib 200 mg capsule (Celebrex) 200 mg PO QPM pain 08/05/24
carvedilol 25 mg tablet (Coreg) 25 mg PO BID #60 tabs 08/09/24
furosemide 40 mg tablet 40 mg PO DAILY PRN weight gain over 3 pounds in 24 hours #30 tabs 08/09/24
spironolactone 25 mg tablet 25 mg PO DAILY #30 tabs 08/09/24
valsartan 160 mg tablet 160 mg PO BID #60 tabs 08/09/24
amiodarone 200 mg tablet 200 mg PO BID #180 tabs 08/17/24
Home Medication Changes
NEW: amiodarone
Pending Results: No
--- NOTE | 2024-08-17 11:39 | PTCARENOTE ---
D/C instructions discussed w/pt & spouse; Pt's IV line & cardiac monitor technician removed. Pt expressed concern whether his chosen pharmacy, [facility] would have his new prescription for Amiodarone. This RN called [facility] in [place] & spoke
w/the pharmacist to confirm that they would have the med for the pt. They stated they could fill the script for 3 days worth & fill the rest tomfri, 08/18/24. Advised the pt & pt's spouse. Pt left via wheelchair w/ providing transportation.
--- NOTE | 2024-08-17 12:25 | CM ---
spoke to pt in room, he is prev indep, lives with his ex in a 2 story home with 1 steps to enter. he denies any dc planning needs or dme's. plan is for dc to home today.
== END 2024-08-17 11:45 | disposition home or self-care (01) ==
LOC: CATH 08:06
PROVIDERS: Nurse Practitioner; ATTENDING PHYSICIAN Internal Medicine Cardiovascular Disease; FAMILY PHYSICIAN Physician Assistant Medical; OTHER PHYSICIAN Nurse Practitioner Adult Health
DX: I48.19 Other persistent atrial fibrillation (principal); I48.4 Atypical atrial flutter; I47.19 Other supraventricular tachycardia; Z79.899 Other long term (current) drug therapy; Z79.01 Long term (current) use of anticoagulants; E78.5 Hyperlipidemia, unspecified; H54.61 Unqualified visual loss, right eye, normal vision left eye; I11.0 Hypertensive heart disease with heart failure; I25.10 Atherosclerotic heart disease of native coronary artery without angina pectoris; I42.9 Cardiomyopathy, unspecified; I49.8 Other specified cardiac arrhythmias; I50.9 Heart failure, unspecified; R73.03 Prediabetes; Z86.73 Personal history of transient ischemic attack (TIA), and cerebral infarction without residual deficits; Z88.2 Allergy status to sulfonamides; Z88.1 Allergy status to other antibiotic agents; Z88.5 Allergy status to narcotic agent; Z88.8 Allergy status to other drugs, medicaments and biological substances
CPT/HCPCS: C1732; C1894; C1769; C1892; C1766; C1733; 80048; 85027; 85347; 86850; 86900; 86901; 93005; 93655; 93656; 93657; C1730; C1759; C1760

== ENCOUNTER → 2024-08-23 06:30 | Outpatient (REF) | payer BC, MEDICARE, SELFPAY ==
[2024-08-24 23:51] LABS: Aldosterone, Serum 27.1 ng/dL
== END ==
LOC: HWLAB 06:30
PROVIDERS: ATTENDING PHYSICIAN Physician Assistant Medical
DX: I10 Essential (primary) hypertension (principal)
CPT/HCPCS: 36415; 82088; 82533

== ENCOUNTER 2024-09-03 09:10 | Day surgery (SDC) | payer BC, SELFPAY ==
[2024-09-03 09:59] VITALS: BMI 33.0
[2024-09-03] MEDS: TRANDATE 10 MG IV (10:09)
[2024-09-03] MEDS: TRANDATE 20 MG IV (11:20)
== END 2024-09-03 14:35 | disposition home or self-care (01) ==
LOC: CATH 09:10
PROVIDERS: ATTENDING PHYSICIAN Student in an Organized Health Care Education/Training Program; FAMILY PHYSICIAN Physician Assistant Medical; OTHER PHYSICIAN Nurse Practitioner Adult Health
DX: I48.91 Unspecified atrial fibrillation (principal); I44.4 Left anterior fascicular block; Z86.73 Personal history of transient ischemic attack (TIA), and cerebral infarction without residual deficits; I11.0 Hypertensive heart disease with heart failure; I50.22 Chronic systolic (congestive) heart failure; I25.10 Atherosclerotic heart disease of native coronary artery without angina pectoris; Z95.5 Presence of coronary angioplasty implant and graft; E78.5 Hyperlipidemia, unspecified; R73.03 Prediabetes; Z79.82 Long term (current) use of aspirin; Z79.01 Long term (current) use of anticoagulants
CPT/HCPCS: 92960; 93005

== ENCOUNTER → 2024-10-01 08:12 | Outpatient (REF) | payer BC, SELFPAY ==
[2024-10-01 09:39] LABS: % Basophils 0.6 % (0-2); % Eosinophils 3.1 % (0-6); % Immature Granulocytes 0.2 % (0-0.5); % Lymphocytes 11.8 % (20.5-51.1); % Monocytes 9.9 % (1.7-9.3); % Neutrophils 74.4 % (42.2-75.2); Absolute Basophils 0.1 10^3/uL (0-0.2); Absolute Eosinophils 0.3 10^3/uL (0-0.7); Absolute Monocytes 0.9 10^3/uL (0.1-0.6); Absolute Neutrophils 6.5 10^3/uL (1.4-6.5); Hematocrit 51.2 % (39.0-52.0); Hemoglobin 16.5 g/dL (13.0-18.0); Mean Corp Hgb Conc. 32.2 g/dL (33.0-37.0); Mean Corpuscular Hgb 29.3 pg (27.0-31.0); Mean Corpuscular Volume 90.9 fL (80.0-94.0); Mean Platelet Volume 11.3 fL (7.4-10.4); Nucleated Red Blood Cells % 0 % (-); Platelet Count 168 10^3/uL (130-400); Red Blood Cell Count 5.63 10^6/uL (4.70-6.10); Red Cell Dist. Width 15.6 % (11.5-14.5); White Blood Cell Count 8.7 10^3/uL (4.8-10.8)
[2024-10-01 09:55] LABS: ALT (SGPT) 39 U/L (0-50); AST (SGOT) 30 U/L (17-59); Albumin 4.7 g/dl (3.5-5.0); Alkaline Phosphatase 91 U/L (38-126); Blood Urea Nitrogen 34 mg/dl (9-20); Calcium 9.7 mg/dl (8.4-10.2); Carbon Dioxide 29 mmol/L (22-30); Chloride 100 mmol/L (98-107); Glucose 111 mg/dl (70-99); HDL Cholesterol 44 mg/dl; LDL Cholesterol, Calculated 125 mg/dl; Potassium 5.3 mmol/L (3.5-5.1); Sodium 138 mmol/L (135-145); Total Bilirubin 1.2 mg/dl (0.2-1.3); Total Cholesterol 189 mg/dl (50-199); Total Protein 6.8 g/dl (6.3-8.2); Triglyceride 100 mg/dl (10-149); Very Low Density Lipoprotein 20 mg/dl (0-30); eGFR 39.99
[2024-10-01 10:24] LABS: TSH Reflex To Free T4 6.13 uIU/ml (0.47-4.68)
[2024-10-01 10:54] LABS: Free T4 1.57 ng/dl (0.78-2.19)
[2024-10-01 14:16] LABS: Glycohemoglobin (HgbA1c) 5.9 % (4.0-5.6)
== END ==
LOC: HWLAB 08:12
PROVIDERS: ATTENDING PHYSICIAN Nurse Practitioner Adult Health; FAMILY PHYSICIAN Physician Assistant Medical; OTHER PHYSICIAN Nurse Practitioner; REFERRING PHYSICIAN Internal Medicine Rheumatology
DX: E78.5 Hyperlipidemia, unspecified (principal); I10 Essential (primary) hypertension; I25.10 Atherosclerotic heart disease of native coronary artery without angina pectoris; E88.810 Metabolic syndrome; R73.01 Impaired fasting glucose; R73.03 Prediabetes; I63.112 Cerebral infarction due to embolism of left vertebral artery; I48.91 Unspecified atrial fibrillation; M19.071 Primary osteoarthritis, right ankle and foot; I48.4 Atypical atrial flutter
CPT/HCPCS: 36415; 80053; 80061; 83036; 84439; 84443; 84550; 85025

== ENCOUNTER → 2024-10-08 07:03 | Outpatient (REF) | payer BC, SELFPAY | LOC: HWRAD 07:03 | PROVIDERS: ATTENDING PHYSICIAN Nurse Practitioner; FAMILY PHYSICIAN Physician Assistant Medical | DX: I48.4 Atypical atrial flutter (principal); I48.0 Paroxysmal atrial fibrillation; I10 Essential (primary) hypertension | CPT/HCPCS: 76775 ==

== ENCOUNTER → 2025-01-20 12:56 | Outpatient (REF) | payer BC, SELFPAY ==
[2025-01-20 15:48] LABS: ALT (SGPT) 43 U/L (0-50); AST (SGOT) 32 U/L (17-59); Albumin 4.9 g/dl (3.5-5.0); Alkaline Phosphatase 94 U/L (38-126); Blood Urea Nitrogen 28 mg/dl (9-20); Calcium 9.5 mg/dl (8.4-10.2); Carbon Dioxide 25 mmol/L (22-30); Chloride 103 mmol/L (98-107); Glucose 102 mg/dl (70-99); HDL Cholesterol 55 mg/dl; LDL Cholesterol, Calculated 127 mg/dl; Potassium 4.3 mmol/L (3.5-5.1); Sodium 140 mmol/L (135-145); Total Bilirubin 1.2 mg/dl (0.2-1.3); Total Cholesterol 197 mg/dl (50-199); Total Protein 7.1 g/dl (6.3-8.2); Triglyceride 76 mg/dl (10-149); Very Low Density Lipoprotein 15 mg/dl (0-30); eGFR 49.77
[2025-01-20 16:17] LABS: TSH 3.38 uIU/ml (0.47-4.68)
[2025-01-21 10:18] LABS: Glycohemoglobin (HgbA1c) 5.5 % (4.0-5.6)
== END ==
LOC: HWLAB 12:56
PROVIDERS: ATTENDING PHYSICIAN Nurse Practitioner Adult Health; FAMILY PHYSICIAN Physician Assistant Medical
DX: E78.5 Hyperlipidemia, unspecified (principal); I1A.0 Resistant hypertension; R73.01 Impaired fasting glucose; R73.03 Prediabetes
CPT/HCPCS: 36415; 80053; 80061; 83036; 84443

== ENCOUNTER → 2025-05-23 12:10 | Outpatient (REF) | payer BC, SELFPAY ==
[2025-05-23 16:09] LABS: Hematocrit 45.8 % (39.0-52.0); Hemoglobin 14.8 g/dL (13.0-18.0); Mean Corp Hgb Conc. 32.3 g/dL (33.0-37.0); Mean Corpuscular Volume 92.0 fL (80.0-94.0); Nucleated Red Blood Cells % 0 % (-); Platelet Count 184 10^3/uL (130-400); Red Cell Dist. Width 15.5 % (11.5-14.5)
== END ==
LOC: HWLAB 12:10
PROVIDERS: ATTENDING PHYSICIAN Internal Medicine Critical Care Medicine; FAMILY PHYSICIAN Physician Assistant Medical
DX: J45.50 Severe persistent asthma, uncomplicated (principal)
CPT/HCPCS: 36415; 82785; 85025; 86003; 86606

== ENCOUNTER → 2025-07-04 12:29 | Outpatient (REF) | payer BC, SELFPAY ==
[2025-07-04 16:40] LABS: Urine Character Clear (Clear)
[2025-07-04 16:42] LABS: Hematocrit 50.4 % (39.0-52.0); Hemoglobin 16.2 g/dL (13.0-18.0); Mean Corp Hgb Conc. 32.1 g/dL (33.0-37.0); Mean Corpuscular Volume 89.4 fL (80.0-94.0); Nucleated Red Blood Cells % 0 % (-); Platelet Count 174 10^3/uL (130-400); Red Cell Dist. Width 14.9 % (11.5-14.5)
[2025-07-04 16:57] LABS: ALT (SGPT) 56 U/L (0-50); AST (SGOT) 37 U/L (17-59); Albumin 4.6 g/dl (3.5-5.0); Alkaline Phosphatase 86 U/L (38-126); Blood Urea Nitrogen 31 mg/dl (9-20); Calcium 9.6 mg/dl (8.4-10.2); Carbon Dioxide 25 mmol/L (22-30); Chloride 105 mmol/L (98-107); Glucose 96 mg/dl (70-99); Potassium 4.3 mmol/L (3.5-5.1); Sodium 139 mmol/L (135-145); Total Protein 7.1 g/dl (6.3-8.2); Uric Acid 4.9 mg/dl (3.5-8.5); eGFR 54.07
[2025-07-04 17:16] LABS: Microalb - Urine Creatinine 216.800 mg/dl
[2025-07-04 17:21] LABS: Microalbumin, Random Urine 1.7 mg/dl (0.6-1.7)
[2025-07-04 18:28] LABS: Urine Red Blood Cell 0-2 /HPF (0-2)
== END ==
LOC: HWLAB 12:29
PROVIDERS: ATTENDING PHYSICIAN Internal Medicine Critical Care Medicine; FAMILY PHYSICIAN Physician Assistant Medical; OTHER PHYSICIAN Student in an Organized Health Care Education/Training Program; REFERRING PHYSICIAN Internal Medicine Rheumatology
DX: J45.50 Severe persistent asthma, uncomplicated (principal); M1A.09X0 Idiopathic chronic gout, multiple sites, without tophus (tophi); N18.31 Chronic kidney disease, stage 3a; I10 Essential (primary) hypertension
CPT/HCPCS: 36415; 80053; 81003; 81015; 82043; 82088; 82570; 82785; 84244; 84550; 85025; 86003; 86606

== ENCOUNTER → 2025-07-06 14:23 | Outpatient (REF) | payer BC, SELFPAY | LOC: RCS 14:23 | PROVIDERS: ATTENDING PHYSICIAN Internal Medicine Critical Care Medicine; FAMILY PHYSICIAN Physician Assistant Medical; REFERRING PHYSICIAN Internal Medicine Cardiovascular Disease | DX: R06.02 Shortness of breath (principal); I50.22 Chronic systolic (congestive) heart failure; I28.8 Other diseases of pulmonary vessels | CPT/HCPCS: 71250; 93306 ==

== ENCOUNTER → 2025-07-09 10:34 | Outpatient (REF) | payer BC, SELFPAY ==
[2025-07-09 13:46] LABS: PSA, Total - Screen 4.54 ng/ml (0.0-4.0)
== END ==
LOC: RCS 10:34
PROVIDERS: ATTENDING PHYSICIAN Internal Medicine Cardiovascular Disease; FAMILY PHYSICIAN Physician Assistant Medical; OTHER PHYSICIAN Specialist
DX: I48.4 Atypical atrial flutter (principal); N40.1 Benign prostatic hyperplasia with lower urinary tract symptoms
CPT/HCPCS: 36415; 93225; 93226; G0103

== ENCOUNTER → 2025-07-26 06:38 | Outpatient (REF) | payer BC, SELFPAY ==
[2025-07-26 10:26] LABS: C-Reactive Protein 13.10 mg/L (0.0-10.00)
== END ==
LOC: HWLAB 06:38
PROVIDERS: ATTENDING PHYSICIAN Internal Medicine Critical Care Medicine; FAMILY PHYSICIAN Physician Assistant Medical
DX: R76.0 Raised antibody titer (principal)
CPT/HCPCS: 36415; 82784; 82785; 85652; 86003; 86140

== ENCOUNTER → 2025-08-02 07:57 | Outpatient (REF) | payer BC, SELFPAY ==
[2025-08-02 10:43] LABS: Hematocrit 44.7 % (39.0-52.0); Hemoglobin 14.9 g/dL (13.0-18.0); Mean Corp Hgb Conc. 33.3 g/dL (33.0-37.0); Mean Corpuscular Volume 89.4 fL (80.0-94.0); Nucleated Red Blood Cells % 0 % (-); Platelet Count 198 10^3/uL (130-400); Red Cell Dist. Width 14.4 % (11.5-14.5)
[2025-08-02 10:53] LABS: ALT (SGPT) 41 U/L (0-50); AST (SGOT) 34 U/L (17-59); Albumin 4.0 g/dl (3.5-5.0); Alkaline Phosphatase 81 U/L (38-126); Blood Urea Nitrogen 26 mg/dl (9-20); Calcium 8.8 mg/dl (8.4-10.2); Carbon Dioxide 30 mmol/L (22-30); Chloride 102 mmol/L (98-107); Glucose 102 mg/dl (70-99); Potassium 3.3 mmol/L (3.5-5.1); Sodium 140 mmol/L (135-145); Total Protein 6.4 g/dl (6.3-8.2); eGFR 54.07
[2025-08-04 22:57] LABS: Albumin 3.62 g/dL (3.75-5.01); Free Kappa Light Chains,Quant 13.24 mg/L (3.30-19.40); Free Lambda Light Chains,Quant 5.58 mg/L (5.71-26.30); Immunofixation Electrophoresis IFE Done; Kappa/Lambda Fr Light Ratio 2.37 (0.26-1.65); Total Protein-Electrophoresis 6.1 g/dL (6.3-8.2)
== END ==
LOC: HWLAB 07:57
PROVIDERS: ATTENDING PHYSICIAN Internal Medicine Hematology & Oncology; FAMILY PHYSICIAN Physician Assistant Medical
DX: D82.4 Hyperimmunoglobulin E [IgE] syndrome (principal)
CPT/HCPCS: 36415; 80053; 82232; 82784; 83521; 84155; 84165; 85025; 86334

== ENCOUNTER → 2025-08-04 08:52 | Outpatient (REF) | payer BC, SELFPAY ==
[2025-08-07 08:32] LABS: 24 Hour Urine Total Volume 1100 mL; Ur Free Lambda Excretion/day 8.16 mg/d; Urine Collection Length 24 hr
== END ==
LOC: HWLAB 08:52
PROVIDERS: ATTENDING PHYSICIAN Internal Medicine Hematology & Oncology; FAMILY PHYSICIAN Physician Assistant Medical
DX: D82.4 Hyperimmunoglobulin E [IgE] syndrome (principal)
CPT/HCPCS: 81050; 83520; 84156; 86335

== ENCOUNTER → 2025-08-18 08:08 | Outpatient (REF) | payer BC, SELFPAY ==
[2025-08-18 11:30] LABS: TSH 4.26 uIU/ml (0.47-4.68)
[2025-08-18 12:19] LABS: ALT (SGPT) 31 U/L (0-50); AST (SGOT) 30 U/L (17-59); Albumin 4.4 g/dl (3.5-5.0); Alkaline Phosphatase 83 U/L (38-126); Blood Urea Nitrogen 18 mg/dl (9-20); Calcium 9.0 mg/dl (8.4-10.2); Carbon Dioxide 30 mmol/L (22-30); Chloride 101 mmol/L (98-107); Glucose 103 mg/dl (70-99); HDL Cholesterol 54 mg/dl; LDL Cholesterol, Calculated 135 mg/dl; Potassium 3.8 mmol/L (3.5-5.1); Sodium 140 mmol/L (135-145); Total Protein 6.7 g/dl (6.3-8.2); Very Low Density Lipoprotein 17 mg/dl (0-30); eGFR 58.73
[2025-08-18 13:10] LABS: Glycohemoglobin (HgbA1c) 5.7 % (4.0-5.9)
== END ==
LOC: HWLAB 08:08
PROVIDERS: ATTENDING PHYSICIAN Student in an Organized Health Care Education/Training Program; FAMILY PHYSICIAN Physician Assistant Medical; REFERRING PHYSICIAN Nurse Practitioner Adult Health
DX: I10 Essential (primary) hypertension (principal); E78.5 Hyperlipidemia, unspecified; R73.01 Impaired fasting glucose; R73.03 Prediabetes
CPT/HCPCS: 36415; 80053; 80061; 83036; 84443

== ENCOUNTER → 2025-09-13 06:55 | Outpatient (REF) | payer BC, SELFPAY ==
[2025-09-13 07:25] VITALS: BP 140/101; BP_SYST 107
[2025-09-13 07:25] LABS: Hematocrit 46.6 % (39.0-52.0); Hemoglobin 15.2 g/dL (13.0-18.0); Mean Corp Hgb Conc. 32.6 g/dL (33.0-37.0); Mean Corpuscular Volume 90.3 fL (80.0-94.0); Nucleated Red Blood Cells % 0 % (-); Platelet Count 203 10^3/uL (130-400); Red Cell Dist. Width 14.6 % (11.5-14.5)
[2025-09-13 07:37] LABS: INR 1.26; PT 16.0 Sec (11.4-14.6)
[2025-09-13 08:44] VITALS: BP 142/104
== END ==
LOC: RADI 06:55
PROVIDERS: ATTENDING PHYSICIAN Internal Medicine Hematology & Oncology; FAMILY PHYSICIAN Physician Assistant Medical; REFERRING PHYSICIAN Physician Assistant
DX: D82.4 Hyperimmunoglobulin E [IgE] syndrome (principal)
CPT/HCPCS: 36415; 38222; 77012; 85025; 85610; 88305; 88311; 88312; 88313

== ENCOUNTER → 2025-09-23 08:59 | Outpatient (REF) | payer BC, SELFPAY ==
[2025-09-23 10:48] LABS: Blood Urea Nitrogen 19 mg/dl (9-20); Calcium 9.5 mg/dl (8.4-10.2); Carbon Dioxide 32 mmol/L (22-30); Chloride 100 mmol/L (98-107); Glucose 90 mg/dl (70-99); Potassium 3.6 mmol/L (3.5-5.1); Sodium 140 mmol/L (135-145); eGFR 58.73
== END ==
LOC: REG 08:59
PROVIDERS: ATTENDING PHYSICIAN Student in an Organized Health Care Education/Training Program; FAMILY PHYSICIAN Physician Assistant Medical
DX: I10 Essential (primary) hypertension (principal)
CPT/HCPCS: 36415; 80048; 82088; 84244